=== PATIENT | male | born 1965 | race American Indian/Alaskan Native ===

== ENCOUNTER 2017-11-08 12:08 | Day surgery (SDC) | payer MEDICAID ==
[~2017-11-08] VITALS: Ht 177.8 cm; Wt 114.1 kg
[~2017-11-08 12:08] MED LIST: FISH OIL PO; FURO-150 PO; MULT-1085 PO; SPIR100T3 PO; VITAMIN B PO; VITAMIN D PO; VITAMIN E PO; folic acid PO
[2017-11-08 12:20] VITALS: BP 140/77
[2017-11-08] MEDS ORDERED: MIDAZolam 5mg/ml 2ml vial ONE (12:25)
[2017-11-08] MEDS ORDERED: fentaNYL/PF 50MCG/1 ML 2ML syringe ONE (12:25)
[2017-11-08] MEDS ORDERED: LIDOcaine Viscous 15ml cup ONE (12:25)
[2017-11-08 13:55] VITALS: BP 124/78
[2017-11-08 14:05] VITALS: BP 111/71
[2017-11-08 14:15] VITALS: BP 103/64
[2017-11-08 14:25] VITALS: BP 110/63
== END 2017-11-08 14:35 | disposition home or self-care (01) ==
LOC: GI LAB 12:08
PROVIDERS: ATTEND Internal Medicine Gastroenterology
DX: I85.00 Esophageal varices without bleeding (principal); K76.6 Portal hypertension; K31.89 Other diseases of stomach and duodenum; Z79.899 Other long term (current) drug therapy; F10.10 Alcohol abuse, uncomplicated; E66.9 Obesity, unspecified; M10.9 Gout, unspecified; E78.4 Other hyperlipidemia; E11.9 Type 2 diabetes mellitus without complications
CPT/HCPCS: 43235; 99152; J2250; J3010; J7030; A4620; G0500

== ENCOUNTER 2019-03-02 12:44 | Inpatient (IN) | payer MEDICAID ==
[2019-03-02] VITALS (7 sets, daily range): BP systolic 113–149; BP diastolic 42–80
[~2019-03-02] VITALS: Ht 177.8 cm; Wt 105.9 kg
[~2019-03-02 12:44] MED LIST changes: +AFRIN; +CETI10CA PO; +CHOL10008 PO; -FISH OIL PO; +FOLI1TAB16 PO; +OMEG1CAP2 PO; +POLY17PO10 PO; +PSEU-259 PO; -SPIR100T3 PO; +SPIR100T5 PO; +TEMA15CA PO; +THIA100T70 PO; +VITA1TAB20 PO; +VITA400C65 PO; -VITAMIN B PO; -VITAMIN D PO; -VITAMIN E PO; -folic acid PO
[2019-03-02 13:36] LABS: BASOPHILS % (AUTO) 0.3 % (0-1); EOSINOPHILS % (AUTO) 0.3 % (0-6); HEMATOCRIT 35.3 % (42.0-52.0); HEMOGLOBIN 12.5 g/dl (14.0-17.9); LYMPHOCYTES # (AUTO) 0.4 X10'3 (1.1-4.8); LYMPHOCYTES % (AUTO) 3.3 % (21-51); MEAN CORPUSCULAR HEMOGLOBIN 37.9 PG (27.0-31.0); MEAN CORPUSCULAR HGB CONC 35.3 g/dL (33.0-36.5); MEAN CORPUSCULAR VOLUME 107.5 FL (78-98); MEAN PLATELET VOLUME 8.5 FL (7.4-10.4); MONOCYTES # (AUTO) 0.7 X10'3 (0-0.9); MONOCYTES % (AUTO) 5.6 % (2-12); NEUTROPHILS # (AUTO) 10.9 X10'3 (1.8-7.7); NEUTROPHILS % (AUTO) 90.5 % (42-75); PLATELET COUNT 60 X10'3 (140-440); RED BLOOD COUNT 3.28 X10'6 (4.70-6.10); RED CELL DISTRIBUTION WIDTH 14.8 % (11.5-14.5); WHITE BLOOD COUNT 12.1 X10'3 (4.5-11.0)
[2019-03-02 13:56] LABS: ALANINE AMINOTRANSFERASE 67 U/L (12-78); ALBUMIN 1.7 G/DL (3.4-5.0); ALKALINE PHOSPHATASE 143 IU/L (46-116); ANION GAP 2 (8-16); BILIRUBIN,TOTAL 20.5 MG/DL (0.1-1.0); BLOOD UREA NITROGEN 19 MG/DL (7-18); BUN/CREATININE RATIO 20.9 (5.4-32.0); CHLORIDE 80 MMOL/L (99-107); CREATININE 0.91 MG/DL (0.60-1.10); POTASSIUM 5.6 MMOL/L (3.5-5.1); TOTAL CARBON DIOXIDE 26.2 MMOL/L (24-32); eGFR 87 ML/MIN
[2019-03-02 13:59] LABS: PLATELET ESTIMATE DECREASED; TOTAL CELLS COUNTED 100
[2019-03-02 14:00] LABS: ROULEAUX 1+; TOXIC GRANULATION 2+; TOXIC VACUOLATION 1+
[2019-03-02 14:14] LABS: ALBUMIN/GLOBULIN RATIO 0.3 (1.1-1.5); ASPARTATE AMINO TRANSFERASE 129 U/L (10-37); GLUCOSE 126 MG/DL (70-104); TOTAL PROTEIN 7.4 G/DL (6.4-8.2)
[2019-03-02 14:17] LABS: SODIUM 108 MMOL/L (135-145)
[2019-03-02] MEDS ORDERED: magnesium hydroxide 30ml (MOM) UD suspension PO PRN (15:50)
[2019-03-02] MEDS ORDERED: potassium CL 10mEq/100ml bag 100 ML IV PRN ×2 (15:50)
[2019-03-02] MEDS ORDERED: morphine 2 MG/ML inj. syringe IV PRN (15:50)
[2019-03-02] MEDS ORDERED: ondansetron/PF 4mg/2ml inj IV PRN (15:50)
[2019-03-02] MEDS ORDERED: acetaminophen 325mg tablet PO PRN (15:50)
[2019-03-02] MEDS ORDERED: morphine 4 MG/ML inj SYRINge IV PRN (15:50)
[2019-03-02] MEDS ORDERED: potassium Cl 20 mEq SR tablet PO PRN ×2 (15:50)
[2019-03-02 16:05] LABS: CLARITY,URINE SLIGHTLY CLOUDY (Clear); COLOR,URINE AMBER (Yellow)
[2019-03-02 16:06] LABS: UA COLLECTION TYPE CLN CATCH MIDSTREAM
[2019-03-02 16:12] LABS: BACTERIA,URINE FEW /HPF (Neg); COARSE GRANULAR CAST 0-3 /LPF (NEGATIVE); HYALINE CASTS 0-3 /LPF (NEGATIVE); MUCUS STRANDS FEW /LPF (Neg); RBC,URINE NONE SEEN /HPF (0-2); SQUAMOUS EPITHELIAL CELL,UR FEW /LPF (FEW); WBC,URINE 0-4 /HPF (0-4)
[2019-03-02 16:30] LABS: SODIUM,URINE RANDOM < 15 MEQ/L
[2019-03-02 16:50] LABS: OSMOLALITY UA 552 MOSM/K (50-1400)
[2019-03-02] MEDS ORDERED: sodium chloride 3% IV.soln 100 ML IV ONE (17:05)
[2019-03-02 17:10] LABS: OSMOLALITY 245 MOSM/K (280-300)
--- NOTE | 2019-03-02 17:30 | NUR ---
Patient transferred to 2013 from ER. Patient alert and oriented. Placed on monitor; VSS. Call light in reach and oriented to room with instructions to call for assistance. Bed alarm set. Orders reviewed
[2019-03-02 18:18] LABS: ALBUMIN 1.9 G/DL (3.4-5.0); ANION GAP 2 (8-16); BLOOD UREA NITROGEN 20 MG/DL (7-18); CALCIUM 8.6 MG/DL (8.5-10.1); CHLORIDE 80 MMOL/L (99-107)
[2019-03-02 18:35] LABS: BUN/CREATININE RATIO 22.7 (5.4-32.0); CREATININE 0.88 MG/DL (0.60-1.10); GLUCOSE 93 MG/DL (70-104); POTASSIUM 5.4 MMOL/L (3.5-5.1); eGFR 90 ML/MIN
[2019-03-02 18:46] LABS: SODIUM 107 MMOL/L (135-145)
[2019-03-03] VITALS (24 sets, daily range): BP systolic 104–140; BP diastolic 50–90
--- NOTE | 2019-03-03 01:16 | NUR ---
Dr. Rod said that after the pt's 100ml 3% saline bolus that was completed around 1814 last night (03/02/19) that he wants Q1H Na+ levels checked until 3am, when AM labs are drawn, then we can go to Q6H BMP's. He also said that he does not want any IV fluids running, nor any additional hypertonic saline boluses overnight. Pt is currently on a fluid restriction of 1500mL/day and has consumed approximately 1/2 of that in a 6hr window. Urine output is slightly low, only 200mL of very dark concentrated strong smelling urine out for the last 8 hrs. The patient's Na+ has been 110 since the completion of the hypertonic bolus last night, until the last check at midnight, which came dropped slightly to 109. Called Mahamed Julio to inform, no new orders given at this time due to Dr. Rod's verbalized orders. Will continue to monitor.
[2019-03-03 06:11] LABS: BASOPHILS % (AUTO) 0.3 % (0-1); EOSINOPHILS # (AUTO) 0.1 X10'3 (0-0.9); EOSINOPHILS % (AUTO) 0.7 % (0-6); HEMATOCRIT 32.3 % (42.0-52.0); HEMOGLOBIN 11.6 g/dl (14.0-17.9); LYMPHOCYTES # (AUTO) 0.6 X10'3 (1.1-4.8); LYMPHOCYTES % (AUTO) 4.8 % (21-51); MEAN CORPUSCULAR HEMOGLOBIN 38.6 PG (27.0-31.0); MEAN CORPUSCULAR HGB CONC 35.8 g/dL (33.0-36.5); MEAN CORPUSCULAR VOLUME 107.8 FL (78-98); MEAN PLATELET VOLUME 9.4 FL (7.4-10.4); NEUTROPHILS % (AUTO) 86.2 % (42-75); PLATELET COUNT 60 X10'3 (140-440); RED CELL DISTRIBUTION WIDTH 14.8 % (11.5-14.5); WHITE BLOOD COUNT 12.8 X10'3 (4.5-11.0)
[2019-03-03 06:13] LABS: ALANINE AMINOTRANSFERASE 63 U/L (12-78); ALBUMIN 1.7 G/DL (3.4-5.0); ALKALINE PHOSPHATASE 120 IU/L (46-116); ANION GAP 2 (8-16); BILIRUBIN,TOTAL 20.2 MG/DL (0.1-1.0); BLOOD UREA NITROGEN 21 MG/DL (7-18); BUN/CREATININE RATIO 26.9 (5.4-32.0); CALCIUM 7.8 MG/DL (8.5-10.1); CHLORIDE 81 MMOL/L (99-107); CREATININE 0.78 MG/DL (0.60-1.10); MAGNESIUM 1.9 MG/DL (1.5-2.4); TOTAL CARBON DIOXIDE 26.7 MMOL/L (24-32); eGFR > 90 ML/MIN
[2019-03-03 06:53] LABS: ALBUMIN/GLOBULIN RATIO 0.3 (1.1-1.5); ASPARTATE AMINO TRANSFERASE 133 U/L (10-37); GLUCOSE 77 MG/DL (70-104); PHOSPHORUS 3.5 MG/DL (2.3-4.5); TOTAL PROTEIN 6.8 G/DL (6.4-8.2)
[2019-03-03 06:56] LABS: POTASSIUM 5.6 MMOL/L (3.5-5.1)
[2019-03-03 06:57] LABS: SODIUM 110 MMOL/L (135-145)
[2019-03-03] MEDS ORDERED: enoxaparin 40mg/0.4ml syringe SUBCUT SCH (08:00)
[2019-03-03 11:23] LABS: ALBUMIN 1.6 G/DL (3.4-5.0); ANION GAP 4 (8-16); BLOOD UREA NITROGEN 21 MG/DL (7-18); BUN/CREATININE RATIO 29.2 (5.4-32.0); CALCIUM 7.7 MG/DL (8.5-10.1); CHLORIDE 80 MMOL/L (99-107); CREATININE 0.72 MG/DL (0.60-1.10); GLUCOSE 119 MG/DL (70-104); POTASSIUM 5.6 MMOL/L (3.5-5.1); TOTAL CARBON DIOXIDE 23.8 MMOL/L (24-32); eGFR > 90 ML/MIN
[2019-03-03 11:26] LABS: SODIUM 108 MMOL/L (135-145)
[2019-03-03 11:27] LABS: CLARITY,URINE CLEAR (Clear); COLOR,URINE BROWN (Yellow); PH,URINE 6.5 (4.8-8.0)
[2019-03-03 11:32] LABS: UA COLLECTION TYPE URINAL
[2019-03-03 11:34] LABS: BACTERIA,URINE NONE SEEN /HPF (Neg); MUCUS STRANDS FEW /LPF (Neg); RBC,URINE NONE SEEN /HPF (0-2); SQUAMOUS EPITHELIAL CELL,UR FEW /LPF (FEW); WBC,URINE 0-4 /HPF (0-4)
[2019-03-03 11:42] LABS: SODIUM,URINE RANDOM < 15 MEQ/L
[2019-03-03 11:54] LABS: OSMOLALITY UA 683 MOSM/K (50-1400)
[2019-03-03] MEDS ORDERED: albumin (human) 25% 100 ML IV solution IV ONE ×2 (12:10→20:00)
[2019-03-03 17:37] LABS: ALBUMIN 2.3 G/DL (3.4-5.0); ANION GAP 6 (8-16); BLOOD UREA NITROGEN 20 MG/DL (7-18); BUN/CREATININE RATIO 30.8 (5.4-32.0); CALCIUM 8.3 MG/DL (8.5-10.1); CHLORIDE 79 MMOL/L (99-107); CREATININE 0.65 MG/DL (0.60-1.10); TOTAL CARBON DIOXIDE 26.3 MMOL/L (24-32); eGFR > 90 ML/MIN
[2019-03-03 17:38] LABS: GLUCOSE 108 MG/DL (70-104); POTASSIUM 5.3 MMOL/L (3.5-5.1)
[2019-03-03 17:40] LABS: SODIUM 111 MMOL/L (135-145)
--- NOTE | 2019-03-03 17:49 | NUR ---
Called Dr Rod to report sodium of 111. Orders to call POCKET GRINDER OPERATOR at night if sodium goes up more then 3mEq every 6 hours
[2019-03-04] VITALS (24 sets, daily range): BP systolic 99–124; BP diastolic 47–78
[2019-03-04 00:05] LABS: GLUCOSE 103 MG/DL (70-104)
[2019-03-04 00:34] LABS: SODIUM 113 MMOL/L (135-145)
[2019-03-04 00:35] LABS: ALBUMIN 2.5 G/DL (3.4-5.0); ANION GAP 6 (8-16); BLOOD UREA NITROGEN 19 MG/DL (7-18); BUN/CREATININE RATIO 33.3 (5.4-32.0); CALCIUM 8.1 MG/DL (8.5-10.1); CHLORIDE 83 MMOL/L (99-107); CREATININE 0.57 MG/DL (0.60-1.10); TOTAL CARBON DIOXIDE 24.5 MMOL/L (24-32); eGFR > 90 ML/MIN
[2019-03-04 05:48] LABS: BASOPHILS % (AUTO) 0.4 % (0-1); EOSINOPHILS # (AUTO) 0.1 X10'3 (0-0.9); EOSINOPHILS % (AUTO) 0.8 % (0-6); HEMATOCRIT 27.2 % (42.0-52.0); HEMOGLOBIN 9.6 g/dl (14.0-17.9); LYMPHOCYTES # (AUTO) 0.4 X10'3 (1.1-4.8); LYMPHOCYTES % (AUTO) 3.5 % (21-51); MEAN CORPUSCULAR HEMOGLOBIN 37.7 PG (27.0-31.0); MEAN CORPUSCULAR HGB CONC 35.3 g/dL (33.0-36.5); MEAN CORPUSCULAR VOLUME 106.7 FL (78-98); MONOCYTES # (AUTO) 0.7 X10'3 (0-0.9); MONOCYTES % (AUTO) 7.4 % (2-12); NEUTROPHILS # (AUTO) 8.8 X10'3 (1.8-7.7); NEUTROPHILS % (AUTO) 87.9 % (42-75); RED BLOOD COUNT 2.55 X10'6 (4.70-6.10); RED CELL DISTRIBUTION WIDTH 14.5 % (11.5-14.5)
[2019-03-04 05:51] LABS: PLATELET COUNT 38 X10'3 (140-440)
--- NOTE | 2019-03-04 06:31 | NUR ---
RN Note -MD Communication Called Mahamed Julio regarding critical platelet of 38. Received order to type and screen
[2019-03-04 06:33] LABS: GLUCOSE 89 MG/DL (70-104); POTASSIUM 5.2 MMOL/L (3.5-5.1)
[2019-03-04 06:34] LABS: ALANINE AMINOTRANSFERASE 49 U/L (12-78); ALBUMIN 2.5 G/DL (3.4-5.0); ALBUMIN/GLOBULIN RATIO 0.7 (1.1-1.5); ALKALINE PHOSPHATASE 101 IU/L (46-116); ANION GAP 6 (8-16); ASPARTATE AMINO TRANSFERASE 86 U/L (10-37); BILIRUBIN,TOTAL 18.3 MG/DL (0.1-1.0); BLOOD UREA NITROGEN 17 MG/DL (7-18); BUN/CREATININE RATIO 27.9 (5.4-32.0); CHLORIDE 82 MMOL/L (99-107); CREATININE 0.61 MG/DL (0.60-1.10); MAGNESIUM 1.8 MG/DL (1.5-2.4); PHOSPHORUS 3.3 MG/DL (2.3-4.5); TOTAL CARBON DIOXIDE 24.3 MMOL/L (24-32); TOTAL PROTEIN 6.3 G/DL (6.4-8.2); eGFR > 90 ML/MIN
[2019-03-04 06:35] LABS: SODIUM 112 MMOL/L (135-145)
--- NOTE | 2019-03-04 06:45 | NUR ---
Patient in room CICU 2013. I have received report from MARIEL Connell and had the opportunity to ask questions and assume patient care.
[2019-03-04 09:58] LABS: ALBUMIN 2.5 G/DL (3.4-5.0); ANION GAP 4 (8-16); BLOOD UREA NITROGEN 17 MG/DL (7-18); CHLORIDE 82 MMOL/L (99-107); CREATININE 0.63 MG/DL (0.60-1.10); TOTAL CARBON DIOXIDE 25.4 MMOL/L (24-32); eGFR > 90 ML/MIN
[2019-03-04 10:04] LABS: GLUCOSE 108 MG/DL (70-104)
[2019-03-04 10:06] LABS: SODIUM 111 MMOL/L (135-145)
--- NOTE | 2019-03-04 12:48 | NUR ---
Dr. Rod aware of last NA 111, down from previous NA 112
[2019-03-04 15:46] LABS: ALBUMIN 2.4 G/DL (3.4-5.0); ANION GAP 3 (8-16); BLOOD UREA NITROGEN 16 MG/DL (7-18); BUN/CREATININE RATIO 23.5 (5.4-32.0); CALCIUM 8.7 MG/DL (8.5-10.1); CHLORIDE 82 MMOL/L (99-107); CREATININE 0.68 MG/DL (0.60-1.10); TOTAL CARBON DIOXIDE 25.8 MMOL/L (24-32); eGFR > 90 ML/MIN
[2019-03-04 15:47] LABS: GLUCOSE 104 MG/DL (70-104); POTASSIUM 5.2 MMOL/L (3.5-5.1)
[2019-03-04 15:49] LABS: SODIUM 111 MMOL/L (135-145)
[2019-03-04 16:01] LABS: PLATELET COUNT 37 X10'3 (140-440)
[2019-03-04 16:02] LABS: D-DIMER 8.43 MG/L FEU (0-0.50); PARTIAL THROMBOPLASTIN TIME 46 SECONDS (22-32)
[2019-03-04 16:06] LABS: SODIUM,URINE RANDOM < 15 MEQ/L
[2019-03-04 16:21] LABS: % IRON SATURATION 106 % (11-46); IRON 87 UG/DL (53-167); TOTAL IRON BINDING CAPACITY 82 UG/DL (259-388)
[2019-03-04 16:45] LABS: FERRITIN 2732 NG/ML (26-388)
[2019-03-04 16:59] LABS: OSMOLALITY UA 598 MOSM/K (50-1400)
--- NOTE | 2019-03-04 18:08 | NUR ---
Problems reprioritized. Patient report given, questions answered & plan of care reviewed with MARIEL Melo.
--- NOTE | 2019-03-04 18:30 | NUR ---
Patient in room CICU 2013. I have received report from Tamica FLOYD and had the opportunity to ask questions and assume patient care.
[2019-03-04 21:48] LABS: ALBUMIN 2.3 G/DL (3.4-5.0); BLOOD UREA NITROGEN 15 MG/DL (7-18); BUN/CREATININE RATIO 20.8 (5.4-32.0); CALCIUM 8.3 MG/DL (8.5-10.1); CHLORIDE 82 MMOL/L (99-107); CREATININE 0.72 MG/DL (0.60-1.10); TOTAL CARBON DIOXIDE 25.1 MMOL/L (24-32); eGFR > 90 ML/MIN
[2019-03-04 21:59] LABS: ANION GAP 6 (8-16); GLUCOSE 93 MG/DL (70-104); POTASSIUM 4.7 MMOL/L (3.5-5.1)
[2019-03-04 22:05] LABS: SODIUM 113 MMOL/L (135-145)
[2019-03-05] VITALS (23 sets, daily range): BP systolic 94–129; BP diastolic 48–79
[2019-03-05 05:37] LABS: HEMATOCRIT 27.2 % (42.0-52.0); HEMOGLOBIN 9.4 g/dl (14.0-17.9); MEAN CORPUSCULAR HEMOGLOBIN 37.9 PG (27.0-31.0); MEAN CORPUSCULAR HGB CONC 34.4 g/dL (33.0-36.5); MEAN CORPUSCULAR VOLUME 110.1 FL (78-98); MEAN PLATELET VOLUME 7.8 FL (7.4-10.4); RED BLOOD COUNT 2.47 X10'6 (4.70-6.10); RED CELL DISTRIBUTION WIDTH 14.3 % (11.5-14.5); WHITE BLOOD COUNT 10.4 X10'3 (4.5-11.0)
[2019-03-05 05:39] LABS: EOSINOPHILS % (AUTO) 0.8 % (0-6); LYMPHOCYTES % (AUTO) 4.7 % (21-51); NEUTROPHILS % (AUTO) 86.1 % (42-75)
[2019-03-05 05:40] LABS: BASOPHILS % (AUTO) 0.4 % (0-1); EOSINOPHILS # (AUTO) 0.1 X10'3 (0-0.9); LYMPHOCYTES # (AUTO) 0.5 X10'3 (1.1-4.8); MONOCYTES # (AUTO) 0.9 X10'3 (0-0.9); NEUTROPHILS # (AUTO) 9.4 X10'3 (1.8-7.7)
[2019-03-05 05:42] LABS: PLATELET COUNT 43 X10'3 (140-440)
[2019-03-05 05:51] LABS: ALANINE AMINOTRANSFERASE 57 U/L (12-78); ALBUMIN 2.3 G/DL (3.4-5.0); ALKALINE PHOSPHATASE 106 IU/L (46-116); ANION GAP 7 (8-16); BILIRUBIN,TOTAL 17.2 MG/DL (0.1-1.0); BLOOD UREA NITROGEN 14 MG/DL (7-18); BUN/CREATININE RATIO 23.3 (5.4-32.0); CALCIUM 7.9 MG/DL (8.5-10.1); CHLORIDE 83 MMOL/L (99-107); MAGNESIUM 1.6 MG/DL (1.5-2.4); eGFR > 90 ML/MIN
--- NOTE | 2019-03-05 06:06 | NUR ---
critical results called to Mahamed Julio. No new orders at this time.
--- NOTE | 2019-03-05 06:13 | NUR ---
Patient in room CICU 2013. I have received report from MARIEL Melo and had the opportunity to ask questions and assume patient care.
[2019-03-05 06:26] LABS: SODIUM 113 MMOL/L (135-145)
[2019-03-05 06:52] LABS: ALBUMIN/GLOBULIN RATIO 0.6 (1.1-1.5); ASPARTATE AMINO TRANSFERASE 105 U/L (10-37); GLUCOSE 86 MG/DL (70-104); PHOSPHORUS 3.6 MG/DL (2.3-4.5); POTASSIUM 4.9 MMOL/L (3.5-5.1); TOTAL PROTEIN 6.2 G/DL (6.4-8.2)
[2019-03-05] MEDS ORDERED: normal saline 1000ml 1,000 ML IVB ONE (10:32)
[2019-03-05 10:34] LABS: ALANINE AMINOTRANSFERASE 62 U/L (12-78); ALBUMIN 2.3 G/DL (3.4-5.0); ALKALINE PHOSPHATASE 106 IU/L (46-116); ANION GAP 6 (8-16); BILIRUBIN,TOTAL 18.8 MG/DL (0.1-1.0); BLOOD UREA NITROGEN 14 MG/DL (7-18); BUN/CREATININE RATIO 19.4 (5.4-32.0); CALCIUM 8.3 MG/DL (8.5-10.1); CHLORIDE 82 MMOL/L (99-107); CREATININE 0.72 MG/DL (0.60-1.10); TOTAL CARBON DIOXIDE 25.3 MMOL/L (24-32); eGFR > 90 ML/MIN
[2019-03-05 10:36] LABS: ASPARTATE AMINO TRANSFERASE 115 U/L (10-37); GLUCOSE 99 MG/DL (70-104); POTASSIUM 4.8 MMOL/L (3.5-5.1); TOTAL PROTEIN 6.6 G/DL (6.4-8.2)
[2019-03-05 10:37] LABS: ALBUMIN/GLOBULIN RATIO 0.5 (1.1-1.5)
[2019-03-05 10:38] LABS: SODIUM 113 MMOL/L (135-145)
--- NOTE | 2019-03-05 14:01 | NUR ---
Carlson catheter and chest tubes removed without complications. Addendum: 03/05/19 at 1401 by Tamica Foote RN WRONG PT*
[2019-03-05 14:16] LABS: OSMOLALITY UA 444 MOSM/K (50-1400)
[2019-03-05 14:20] LABS: SODIUM,URINE RANDOM < 15 MEQ/L
[2019-03-05 16:42] LABS: ALBUMIN 2.3 G/DL (3.4-5.0); ANION GAP 6 (8-16); BLOOD UREA NITROGEN 15 MG/DL (7-18); BUN/CREATININE RATIO 22.4 (5.4-32.0); CALCIUM 7.9 MG/DL (8.5-10.1); CHLORIDE 84 MMOL/L (99-107); CREATININE 0.67 MG/DL (0.60-1.10); TOTAL CARBON DIOXIDE 22.8 MMOL/L (24-32); eGFR > 90 ML/MIN
[2019-03-05 16:45] LABS: GLUCOSE 109 MG/DL (70-104); POTASSIUM 4.7 MMOL/L (3.5-5.1)
[2019-03-05 16:47] LABS: SODIUM 113 MMOL/L (135-145)
[2019-03-05] MEDS ORDERED: normal saline 1000ml 1,000 ML IV ONE (16:55)
--- NOTE | 2019-03-05 18:17 | NUR ---
Problems reprioritized. Patient report given, questions answered & plan of care reviewed with MARIEL Flores.
--- NOTE | 2019-03-05 18:30 | NUR ---
Patient in room CICU 2013. I have received report from Tamica FLOYD and had the opportunity to ask questions and assume patient care. Pt sitting in bed eating dinner, family at bedside, questions answered.
[2019-03-05 19:09] LABS: ALBUMIN 2.3 G/DL (3.4-5.0); ANION GAP 4 (8-16); BLOOD UREA NITROGEN 14 MG/DL (7-18); BUN/CREATININE RATIO 19.4 (5.4-32.0); CALCIUM 7.2 MG/DL (8.5-10.1); CHLORIDE 84 MMOL/L (99-107); CREATININE 0.72 MG/DL (0.60-1.10); TOTAL CARBON DIOXIDE 26.9 MMOL/L (24-32); eGFR > 90 ML/MIN
[2019-03-05 19:19] LABS: SODIUM 115 MMOL/L (135-145)
[2019-03-05 19:27] LABS: GLUCOSE 118 MG/DL (70-104); POTASSIUM 4.8 MMOL/L (3.5-5.1)
--- NOTE | 2019-03-05 19:30 | NUR ---
Current labs reviewed. Maryjo updated. No new orders at this time.
[2019-03-05] MEDS: vitamin D (cholecalciferol) 1,000 unit tablet PO SCH (21:01)
[2019-03-05] MEDS: temazepam 15mg capsule PO SCH (21:01)
[2019-03-05 21:14] LABS: OSMOLALITY UA 492 MOSM/K (50-1400)
[2019-03-05 21:15] LABS: SODIUM,URINE RANDOM < 15 MEQ/L
[2019-03-06] VITALS (26 sets, daily range): BP systolic 90–124; BP diastolic 50–80
[2019-03-06 04:40] LABS: BASOPHILS % (AUTO) 0.3 % (0-1); EOSINOPHILS # (AUTO) 0.1 X10'3 (0-0.9); EOSINOPHILS % (AUTO) 0.7 % (0-6); HEMATOCRIT 26.7 % (42.0-52.0); HEMOGLOBIN 9.5 g/dl (14.0-17.9); LYMPHOCYTES # (AUTO) 0.5 X10'3 (1.1-4.8); LYMPHOCYTES % (AUTO) 4.3 % (21-51); MEAN CORPUSCULAR HEMOGLOBIN 38.6 PG (27.0-31.0); MEAN CORPUSCULAR HGB CONC 35.7 g/dL (33.0-36.5); MEAN CORPUSCULAR VOLUME 108.1 FL (78-98); MEAN PLATELET VOLUME 8.5 FL (7.4-10.4); MONOCYTES # (AUTO) 0.8 X10'3 (0-0.9); MONOCYTES % (AUTO) 7.2 % (2-12); NEUTROPHILS # (AUTO) 10.1 X10'3 (1.8-7.7); NEUTROPHILS % (AUTO) 87.5 % (42-75); RED BLOOD COUNT 2.47 X10'6 (4.70-6.10); RED CELL DISTRIBUTION WIDTH 14.8 % (11.5-14.5); WHITE BLOOD COUNT 11.6 X10'3 (4.5-11.0)
[2019-03-06 04:50] LABS: PLATELET COUNT 45 X10'3 (140-440)
[2019-03-06 05:02] LABS: ALANINE AMINOTRANSFERASE 67 U/L (12-78); ALBUMIN 2.2 G/DL (3.4-5.0); ALKALINE PHOSPHATASE 111 IU/L (46-116); ANION GAP 5 (8-16); BILIRUBIN,TOTAL 16.4 MG/DL (0.1-1.0); BLOOD UREA NITROGEN 12 MG/DL (7-18); CHLORIDE 86 MMOL/L (99-107); MAGNESIUM 1.7 MG/DL (1.5-2.4); TOTAL CARBON DIOXIDE 24.9 MMOL/L (24-32); eGFR > 90 ML/MIN
[2019-03-06 05:15] LABS: ASPARTATE AMINO TRANSFERASE 113 U/L (10-37)
[2019-03-06 05:18] LABS: ALBUMIN/GLOBULIN RATIO 0.5 (1.1-1.5); GLUCOSE 86 MG/DL (70-104); PHOSPHORUS 3.3 MG/DL (2.3-4.5); POTASSIUM 4.5 MMOL/L (3.5-5.1); TOTAL PROTEIN 6.3 G/DL (6.4-8.2)
[2019-03-06 05:19] LABS: SODIUM 116 MMOL/L (135-145)
--- NOTE | 2019-03-06 06:15 | NUR ---
Patient in room CICU 2013. I have received report from MARIEL Flores and had the opportunity to ask questions and assume patient care.
--- NOTE | 2019-03-06 06:38 | NUR ---
Problems reprioritized. Patient report given, questions answered & plan of care reviewed with Abdon FLOYD.
[2019-03-06 08:23] LABS: ALBUMIN 2.2 G/DL (3.4-5.0); ANION GAP 5 (8-16); BLOOD UREA NITROGEN 12 MG/DL (7-18); CALCIUM 8.3 MG/DL (8.5-10.1); CHLORIDE 88 MMOL/L (99-107); TOTAL CARBON DIOXIDE 23.7 MMOL/L (24-32)
[2019-03-06 08:24] LABS: BUN/CREATININE RATIO 17.4 (5.4-32.0); CREATININE 0.69 MG/DL (0.60-1.10); GLUCOSE 88 MG/DL (70-104); POTASSIUM 4.7 MMOL/L (3.5-5.1); eGFR > 90 ML/MIN
[2019-03-06] MEDS: folic acid 1mg tablet PO SCH (08:25)
[2019-03-06] MEDS: vitamin E 400 unit capsule PO SCH (08:25)
[2019-03-06] MEDS: vitamin D (cholecalciferol) 1,000 unit tablet PO SCH ×2 (08:25→20:51)
[2019-03-06] MEDS: thiamine 100mg tablet PO SCH (08:25)
[2019-03-06] MEDS: vitamin B comp w/Vit. C tab 1 TAB TABLET PO SCH (08:25)
[2019-03-06] MEDS: multivitamins, therapeutics tablet PO SCH (08:25)
[2019-03-06] MEDS: OMEGA-3/DHA/EPA/FISH OIL 1 EACH CAPSULE.DR PO SCH (08:27)
[2019-03-06 08:30] LABS: SODIUM 117 MMOL/L (135-145)
--- NOTE | 2019-03-06 10:45 | NUR ---
During rounds with MD Rod he was informed of increasing size of Abdomen and he was expressed the daughters concerns about his plan of care and that she wants the pt transferred to his "liver doctor". MD has already attempted to contact him and his MD is aware that the pt is here at this time he is not requesting to have the pt transferred due to the fact that the pt only stopped drinking three weeks ago and has not made it to an apt with him in 1.5 yrs. daughter educated that we need to get the pt through this acute phase and then they can make a residential plan for the pts care on an out pt basis. We are going to do a paracentesis today and we are monitoring NA closely
[2019-03-06] MEDS ORDERED: albumin (human) 25% 100 ML IV solution IV ONE (12:25)
--- NOTE | 2019-03-06 13:30 | NUR ---
IR called they wont do the Para until the Platelets are within a safe range and INR is lower MD Rod notified ordered daily Vit K and 1 pack of platelets will redraw labs 2 hours after platelet infusion
[2019-03-06] MEDS ORDERED: phytonadione inj. 5 MG in normal saline 100ml IV soln 99.5 ML IV ONE (14:00)
--- NOTE | 2019-03-06 14:06 | NUR ---
Nutrition consult received re: poor PO, hepatic failure, chronic hyponatremia. Pt had SIADH or volume depletion per MD note 03/05; conservative medical treatment needed for the hyponatremia including MD ordered fluid restriction and cannot be altered with any additional nutrition intervention at this time. Appetite is improved since admission, has been eating 75-100% for the past two meals, eating 25-49% prior. Currently, pt is meeting nutrition needs. Fluid restriction per MD is 1500 ml for nursing, 0 ml dietary. Dietary sending dry tray. Pt admitted with heavy EtOH history, liver cirrhosis, ascites with soft abdomen, hyponatremia as mentioned above. Will continue to follow per protocol and monitor PO intake. Recommend: 1. continue regular diet 2. fluid restriction per MD 3. monitor PO intake and need for ONS 4. wt per rx Addendum: 03/06/19 at [address] Amended: Links added.
[2019-03-06 18:05] LABS: ANION GAP 6 (8-16); BLOOD UREA NITROGEN 12 MG/DL (7-18); BUN/CREATININE RATIO 16.2 (5.4-32.0); CHLORIDE 86 MMOL/L (99-107); CREATININE 0.74 MG/DL (0.60-1.10); TOTAL CARBON DIOXIDE 25.6 MMOL/L (24-32)
[2019-03-06 18:06] LABS: ALANINE AMINOTRANSFERASE 70 U/L (12-78); ALBUMIN 2.3 G/DL (3.4-5.0); ALKALINE PHOSPHATASE 113 IU/L (46-116); BILIRUBIN,TOTAL 15.5 MG/DL (0.1-1.0); CALCIUM 7.9 MG/DL (8.5-10.1); eGFR > 90 ML/MIN
[2019-03-06 18:15] LABS: ALBUMIN/GLOBULIN RATIO 0.5 (1.1-1.5); ASPARTATE AMINO TRANSFERASE 111 U/L (10-37); GLUCOSE 101 MG/DL (70-104); POTASSIUM 4.8 MMOL/L (3.5-5.1); TOTAL PROTEIN 6.6 G/DL (6.4-8.2)
[2019-03-06 18:17] LABS: SODIUM 118 MMOL/L (135-145)
--- NOTE | 2019-03-06 18:20 | NUR ---
Patient in room CICU 2013. I have received report and had the opportunity to ask questions and assume patient care.
[2019-03-06 18:43] LABS: BASOPHILS # (AUTO) 0.1 X10'3 (0-0.2); BASOPHILS % (AUTO) 0.6 % (0-1); EOSINOPHILS # (AUTO) 0.1 X10'3 (0-0.9); EOSINOPHILS % (AUTO) 0.8 % (0-6); HEMATOCRIT 27.2 % (42.0-52.0); HEMOGLOBIN 9.7 g/dl (14.0-17.9); LYMPHOCYTES # (AUTO) 0.5 X10'3 (1.1-4.8); LYMPHOCYTES % (AUTO) 4.5 % (21-51); MEAN CORPUSCULAR HEMOGLOBIN 38.6 PG (27.0-31.0); MEAN CORPUSCULAR HGB CONC 35.7 g/dL (33.0-36.5); MEAN CORPUSCULAR VOLUME 108.3 FL (78-98); MEAN PLATELET VOLUME 8.2 FL (7.4-10.4); MONOCYTES # (AUTO) 0.7 X10'3 (0-0.9); MONOCYTES % (AUTO) 6.7 % (2-12); NEUTROPHILS # (AUTO) 9.2 X10'3 (1.8-7.7); NEUTROPHILS % (AUTO) 87.4 % (42-75); PLATELET COUNT 67 X10'3 (140-440); RED BLOOD COUNT 2.52 X10'6 (4.70-6.10); RED CELL DISTRIBUTION WIDTH 14.6 % (11.5-14.5); WHITE BLOOD COUNT 10.5 X10'3 (4.5-11.0)
[2019-03-06] MEDS: temazepam 15mg capsule PO SCH (20:51)
[2019-03-06 21:54] LABS: ALBUMIN 2.2 G/DL (3.4-5.0); ANION GAP 4 (8-16); BLOOD UREA NITROGEN 12 MG/DL (7-18); BUN/CREATININE RATIO 17.1 (5.4-32.0); CALCIUM 7.7 MG/DL (8.5-10.1); CHLORIDE 88 MMOL/L (99-107); TOTAL CARBON DIOXIDE 25.6 MMOL/L (24-32); eGFR > 90 ML/MIN
[2019-03-06 22:04] LABS: GLUCOSE 100 MG/DL (70-104); POTASSIUM 4.8 MMOL/L (3.5-5.1)
[2019-03-06 22:06] LABS: SODIUM 118 MMOL/L (135-145)
[2019-03-07] VITALS (20 sets, daily range): BP systolic 102–128; BP diastolic 53–75
--- NOTE | 2019-03-07 02:41 | NUR ---
pt transferred to room 3014 on pcu. Problems reprioritized. Patient report given, questions answered & plan of care reviewed.
--- NOTE | 2019-03-07 02:46 | NUR ---
Patient in room CICU 2012. I have received report from Nasrin FLOYD ICU and had the opportunity to ask questions and assume patient care.
--- NOTE | 2019-03-07 03:00 | NUR ---
pt arrived to unit with all belongings, VS stable, oriented pt to room, call light within reach.
--- NOTE | 2019-03-07 04:30 | NUR ---
I have reviewed and agree with Lg FLOYDpathology transcriptionist.
[2019-03-07 05:32] LABS: BASOPHILS % (AUTO) 0.3 % (0-1); EOSINOPHILS # (AUTO) 0.1 X10'3 (0-0.9); HEMOGLOBIN 9.4 g/dl (14.0-17.9); LYMPHOCYTES # (AUTO) 0.4 X10'3 (1.1-4.8); LYMPHOCYTES % (AUTO) 3.5 % (21-51); MEAN CORPUSCULAR HEMOGLOBIN 38.6 PG (27.0-31.0); MEAN CORPUSCULAR HGB CONC 35.9 g/dL (33.0-36.5); MEAN CORPUSCULAR VOLUME 107.4 FL (78-98); MONOCYTES # (AUTO) 0.7 X10'3 (0-0.9); MONOCYTES % (AUTO) 7.1 % (2-12); NEUTROPHILS # (AUTO) 9.3 X10'3 (1.8-7.7); NEUTROPHILS % (AUTO) 88.1 % (42-75); PLATELET COUNT 62 X10'3 (140-440); RED BLOOD COUNT 2.42 X10'6 (4.70-6.10); RED CELL DISTRIBUTION WIDTH 14.5 % (11.5-14.5); WHITE BLOOD COUNT 10.5 X10'3 (4.5-11.0)
[2019-03-07 06:17] LABS: ALANINE AMINOTRANSFERASE 65 U/L (12-78); ALBUMIN 2.1 G/DL (3.4-5.0); ALBUMIN/GLOBULIN RATIO 0.5 (1.1-1.5); ALKALINE PHOSPHATASE 129 IU/L (46-116); ANION GAP 6 (8-16); ASPARTATE AMINO TRANSFERASE 107 U/L (10-37); BILIRUBIN,TOTAL 13.8 MG/DL (0.1-1.0); BLOOD UREA NITROGEN 12 MG/DL (7-18); BUN/CREATININE RATIO 18.2 (5.4-32.0); CALCIUM 8.2 MG/DL (8.5-10.1); CHLORIDE 88 MMOL/L (99-107); CREATININE 0.66 MG/DL (0.60-1.10); GLUCOSE 96 MG/DL (70-104); MAGNESIUM 1.8 MG/DL (1.5-2.4); PHOSPHORUS 3.3 MG/DL (2.3-4.5); POTASSIUM 4.8 MMOL/L (3.5-5.1); TOTAL CARBON DIOXIDE 24.4 MMOL/L (24-32); TOTAL PROTEIN 6.2 G/DL (6.4-8.2); eGFR > 90 ML/MIN
--- NOTE | 2019-03-07 06:32 | NUR ---
Problems reprioritized. Patient report given, questions answered & plan of care reviewed with Jacey FLOYD.
[2019-03-07 06:40] LABS: SODIUM 118 MMOL/L (135-145)
--- NOTE | 2019-03-07 06:40 | NUR ---
Received critical NA of [address] Lora, received no new orders.
--- NOTE | 2019-03-07 07:07 | NUR ---
Patient in room PCU 3014B. I have received report from Reymundo FLOYD and had the opportunity to ask questions and assume patient care.
[2019-03-07] MEDS: vitamin D (cholecalciferol) 1,000 unit tablet PO SCH ×2 (07:54→21:32)
[2019-03-07] MEDS: thiamine 100mg tablet PO SCH (07:54)
[2019-03-07] MEDS: multivitamins, therapeutics tablet PO SCH (07:54)
[2019-03-07] MEDS: folic acid 1mg tablet PO SCH (07:54)
[2019-03-07] MEDS: vitamin E 400 unit capsule PO SCH (09:27)
[2019-03-07] MEDS: vitamin B comp w/Vit. C tab 1 TAB TABLET PO SCH (09:27)
[2019-03-07] MEDS: OMEGA-3/DHA/EPA/FISH OIL 1 EACH CAPSULE.DR PO SCH (09:27)
[2019-03-07] MEDS ORDERED: albumin (human) 25% 100 ML IV solution IV ONE (11:25)
--- NOTE | 2019-03-07 18:12 | NUR ---
Problems reprioritized. Patient report given, questions answered & plan of care reviewed with Cihchi FLOYD.
--- NOTE | 2019-03-07 18:30 | NUR ---
Patient in room PCU 3014. I have received report from Jacey FLOYD and had the opportunity to ask questions and assume patient care.
[2019-03-07] MEDS: temazepam 15mg capsule PO SCH (21:32)
[2019-03-08 03:00] VITALS: BP 112/60
[2019-03-08 03:30] VITALS: BP 112/60
[2019-03-08 06:00] VITALS: BP 99/64
--- NOTE | 2019-03-08 06:09 | NUR ---
Problems reprioritized. Patient report given, questions answered & plan of care reviewed with Maria Isabel FLOYD.
--- NOTE | 2019-03-08 06:30 | NUR ---
Patient in room PCU 3014. I have received report from Chichi FLOYD and had the opportunity to ask questions and assume patient care.
[2019-03-08 06:41] LABS: ALANINE AMINOTRANSFERASE 67 U/L (12-78); ALBUMIN 2.1 G/DL (3.4-5.0); ALKALINE PHOSPHATASE 155 IU/L (46-116); ANION GAP 7 (8-16); ASPARTATE AMINO TRANSFERASE 98 U/L (10-37); BLOOD UREA NITROGEN 12 MG/DL (7-18); BUN/CREATININE RATIO 15.8 (5.4-32.0); CALCIUM 7.3 MG/DL (8.5-10.1); CHLORIDE 91 MMOL/L (99-107); CREATININE 0.76 MG/DL (0.60-1.10); GLUCOSE 104 MG/DL (70-104); MAGNESIUM 1.8 MG/DL (1.5-2.4); POTASSIUM 4.6 MMOL/L (3.5-5.1); SODIUM 122 MMOL/L (135-145); TOTAL CARBON DIOXIDE 24.4 MMOL/L (24-32); eGFR > 90 ML/MIN
[2019-03-08 06:44] LABS: ALBUMIN/GLOBULIN RATIO 0.5 (1.1-1.5); PHOSPHORUS 3.1 MG/DL (2.3-4.5)
[2019-03-08 07:26] LABS: BASOPHILS % (AUTO) 0.4 % (0-1); EOSINOPHILS # (AUTO) 0.1 X10'3 (0-0.9); HEMATOCRIT 27.2 % (42.0-52.0); HEMOGLOBIN 9.5 g/dl (14.0-17.9); LYMPHOCYTES # (AUTO) 0.4 X10'3 (1.1-4.8); LYMPHOCYTES % (AUTO) 4.1 % (21-51); MEAN CORPUSCULAR HEMOGLOBIN 38.1 PG (27.0-31.0); MEAN CORPUSCULAR VOLUME 108.9 FL (78-98); MEAN PLATELET VOLUME 9.6 FL (7.4-10.4); MONOCYTES # (AUTO) 0.8 X10'3 (0-0.9); MONOCYTES % (AUTO) 7.3 % (2-12); NEUTROPHILS # (AUTO) 9.3 X10'3 (1.8-7.7); NEUTROPHILS % (AUTO) 87.2 % (42-75); RED CELL DISTRIBUTION WIDTH 14.6 % (11.5-14.5); WHITE BLOOD COUNT 10.7 X10'3 (4.5-11.0)
[2019-03-08 07:30] VITALS: BP 99/64
[2019-03-08 07:31] LABS: PLATELET COUNT 49 X10'3 (140-440)
--- NOTE | 2019-03-08 08:05 | NUR ---
Called Dr. Rod regarding critical platelet count of 49 this morning. No new orders at this time.
[2019-03-08] MEDS: vitamin B comp w/Vit. C tab 1 TAB TABLET PO SCH (08:10)
[2019-03-08] MEDS: thiamine 100mg tablet PO SCH (08:11)
[2019-03-08] MEDS: vitamin D (cholecalciferol) 1,000 unit tablet PO SCH (08:11)
[2019-03-08] MEDS: folic acid 1mg tablet PO SCH (08:11)
[2019-03-08] MEDS: multivitamins, therapeutics tablet PO SCH (08:11)
[2019-03-08] MEDS: vitamin E 400 unit capsule PO SCH (08:11)
[2019-03-08] MEDS: OMEGA-3/DHA/EPA/FISH OIL 1 EACH CAPSULE.DR PO SCH (08:11)
[2019-03-08 11:00] VITALS: BP 103/43
--- NOTE | 2019-03-08 15:17 | NUR ---
Reviewed discharge instructions with pt and pt's family. Pt is awaiting a call back from PCP at the [facility]. Pt educated on signs and symptoms of hyponatremia and when to return to hospital. IV discontinued with canula intact. Tele monitor discontinued. No new medications prescribed at this time. Reviewed current medication regimen with pt. Pt alert and oriented X 4 and pt taken to lobby via wheelchair. Pt driven home in private vehicle by pt's daughter.
== END 2019-03-08 15:20 | disposition home or self-care (01) | DRG 280 ==
LOC: ER 12:45 → CICU 2S 16:41 → CMPBEDREQ 03-05 19:47 → PCU 3S 03-07 03:00
PROVIDERS: ADMIT Internal Medicine Critical Care Medicine; ATTEND Internal Medicine Critical Care Medicine
PROC: 30233R1 Transfusion of Nonautologous Platelets into Peripheral Vein, Percutaneous Approach (ICD-10-PCS; principal; 2019-03-06)
PROC: 0W9G3ZZ Drainage of Peritoneal Cavity, Percutaneous Approach (ICD-10-PCS; 2019-03-07)
DX: K70.31 Alcoholic cirrhosis of liver with ascites (principal); E43 Unspecified severe protein-calorie malnutrition; D68.9 Coagulation defect, unspecified; E22.2 Syndrome of inappropriate secretion of antidiuretic hormone; D69.59 Other secondary thrombocytopenia; D64.9 Anemia, unspecified; F10.20 Alcohol dependence, uncomplicated; R27.0 Ataxia, unspecified; Z80.6 Family history of leukemia; Z68.33 Body mass index [BMI] 33.0-33.9, adult; Z79.899 Other long term (current) drug therapy
CPT/HCPCS: 36415; 49083; 80048; 80053; 81001; 82728; 83010; 83540; 83550; 83735; 83930; 83935; 84100; 84295; 84300; 84443; 85025; 85379; 85384; 85610; 85730; 86885; 86900; 86901; 87081; 93005; 97116; 97161; 97530; 99285; G0378; J3430; J7131; P9035; P9047

== ENCOUNTER 2019-03-11 20:06 | Inpatient (IN) | payer MEDICAID ==
[~2019-03-11] VITALS: Ht 177.8 cm; Wt 106.5 kg
[~2019-03-11 20:06] MED LIST changes: -AFRIN; -CETI10CA PO; -FURO-150 PO; -POLY17PO10 PO; -PSEU-259 PO
[2019-03-11 20:43] LABS: BASOPHILS # (AUTO) 0.1 X10'3 (0-0.2); BASOPHILS % (AUTO) 0.5 % (0-1); EOSINOPHILS # (AUTO) 0.1 X10'3 (0-0.9); EOSINOPHILS % (AUTO) 0.7 % (0-6); HEMATOCRIT 32.6 % (42.0-52.0); HEMOGLOBIN 11.2 g/dl (14.0-17.9); LYMPHOCYTES # (AUTO) 0.6 X10'3 (1.1-4.8); LYMPHOCYTES % (AUTO) 4.3 % (21-51); MEAN CORPUSCULAR HEMOGLOBIN 37.6 PG (27.0-31.0); MEAN CORPUSCULAR HGB CONC 34.4 g/dL (33.0-36.5); MEAN CORPUSCULAR VOLUME 109.4 FL (78-98); MEAN PLATELET VOLUME 8.2 FL (7.4-10.4); MONOCYTES % (AUTO) 7.4 % (2-12); NEUTROPHILS % (AUTO) 87.1 % (42-75); PLATELET COUNT 76 X10'3 (140-440); RED BLOOD COUNT 2.98 X10'6 (4.70-6.10); RED CELL DISTRIBUTION WIDTH 15.4 % (11.5-14.5); WHITE BLOOD COUNT 13.8 X10'3 (4.5-11.0)
[2019-03-11 20:55] LABS: PARTIAL THROMBOPLASTIN TIME 41 SECONDS (22-32)
[2019-03-11 20:56] LABS: ALANINE AMINOTRANSFERASE 72 U/L (12-78); ALBUMIN 2.2 G/DL (3.4-5.0); ALKALINE PHOSPHATASE 145 IU/L (46-116); BILIRUBIN,TOTAL 14.2 MG/DL (0.1-1.0); BLOOD UREA NITROGEN 24 MG/DL (7-18); BUN/CREATININE RATIO 25.8 (5.4-32.0); CALCIUM 8.9 MG/DL (8.5-10.1); CHLORIDE 85 MMOL/L (99-107); CREATININE 0.93 MG/DL (0.60-1.10); TOTAL CARBON DIOXIDE 24.8 MMOL/L (24-32); eGFR 85 ML/MIN
[2019-03-11 21:13] LABS: ASPARTATE AMINO TRANSFERASE 97 U/L (10-37)
[2019-03-11 21:14] LABS: ALBUMIN/GLOBULIN RATIO 0.4 (1.1-1.5); GLUCOSE 85 MG/DL (70-104); POTASSIUM 5.1 MMOL/L (3.5-5.1); TOTAL PROTEIN 7.2 G/DL (6.4-8.2)
[2019-03-11 21:17] LABS: ANION GAP 6 (8-16)
[2019-03-11 21:18] LABS: SODIUM 116 MMOL/L (135-145)
--- NOTE | 2019-03-11 21:43 | NUR ---
DR DE LA O AWARE OF LABS. NO NEW ORDERS.
[2019-03-11] MEDS ORDERED: mag hydrox/Alum hydrox/simeth 30ml oral suspension PO PRN (22:40)
[2019-03-11] MEDS ORDERED: ondansetron/PF 4mg/2ml inj IV PRN (22:40)
[2019-03-11] MEDS ORDERED: magnesium hydroxide 30ml (MOM) UD suspension PO PRN (22:40)
--- NOTE | 2019-03-11 23:46 | NUR ---
PT UNABLE TO GIVE URINE SAMPLE AFTER MULTIPLE ATTEMPTS. INFORMED PT OF POSSIBLE NEED TO STRAIGHT CATH FOR SAMPLE. PT ADAMENTLY REFUSED.
--- NOTE | 2019-03-11 23:54 | NUR ---
I HAVE RECEIVED REPORT FROM MARIEL OBRIEN IN ED. ALL QUESTIONS AND CONCERNS ADDRESSED AT THIS TIME. PCU ROOM 3016A PREPPED AND READY TO RECEIVE PATIENT
[2019-03-12 00:05] VITALS: BP 109/70
[2019-03-12] MEDS ORDERED: temazepam 15mg capsule PO ONE (02:20)
[2019-03-12 03:00] VITALS: BP 108/56
[2019-03-12 03:01] LABS: ALANINE AMINOTRANSFERASE 63 U/L (12-78); ALKALINE PHOSPHATASE 127 IU/L (46-116); ASPARTATE AMINO TRANSFERASE 87 U/L (10-37); BILIRUBIN,TOTAL 13.6 MG/DL (0.1-1.0); BLOOD UREA NITROGEN 25 MG/DL (7-18); BUN/CREATININE RATIO 31.6 (5.4-32.0); CREATININE 0.79 MG/DL (0.60-1.10); GLUCOSE 96 MG/DL (70-104); TOTAL CARBON DIOXIDE 22.6 MMOL/L (24-32); eGFR > 90 ML/MIN
[2019-03-12 03:07] LABS: BASOPHILS % (AUTO) 0.3 % (0-1); EOSINOPHILS # (AUTO) 0.1 X10'3 (0-0.9); EOSINOPHILS % (AUTO) 0.7 % (0-6); HEMATOCRIT 28.9 % (42.0-52.0); HEMOGLOBIN 10.2 g/dl (14.0-17.9); LYMPHOCYTES # (AUTO) 0.6 X10'3 (1.1-4.8); MEAN CORPUSCULAR HGB CONC 35.2 g/dL (33.0-36.5); MEAN CORPUSCULAR VOLUME 110.9 FL (78-98); MEAN PLATELET VOLUME 8.6 FL (7.4-10.4); MONOCYTES # (AUTO) 1.3 X10'3 (0-0.9); MONOCYTES % (AUTO) 8.8 % (2-12); NEUTROPHILS # (AUTO) 12.8 X10'3 (1.8-7.7); NEUTROPHILS % (AUTO) 86.2 % (42-75); PLATELET COUNT 58 X10'3 (140-440); RED BLOOD COUNT 2.61 X10'6 (4.70-6.10); RED CELL DISTRIBUTION WIDTH 14.9 % (11.5-14.5); WHITE BLOOD COUNT 14.9 X10'3 (4.5-11.0)
[2019-03-12 03:15] LABS: ALBUMIN/GLOBULIN RATIO 0.5 (1.1-1.5); ANION GAP 18 (8-16); CHLORIDE 72 MMOL/L (99-107); POTASSIUM 5.3 MMOL/L (3.5-5.1); TOTAL PROTEIN 6.3 G/DL (6.4-8.2)
[2019-03-12 03:19] LABS: SODIUM 113 MMOL/L (135-145)
[2019-03-12 05:47] LABS: PLATELET ESTIMATE DECREASED
--- NOTE | 2019-03-12 06:11 | NUR ---
I HAVE GIVEN REPORT TO MARIEL YOUNG. ALL QUESTIONS AND CONCERNS ADDRESSED AT THIS TIME.
--- NOTE | 2019-03-12 06:17 | NUR ---
Patient in room PCU 3016. I have received report from Marce FLOYD and had the opportunity to ask questions and assume patient care.
[2019-03-12 06:48] VITALS: BP 102/57
[2019-03-12] MEDS: OMEGA-3/DHA/EPA/FISH OIL 1 EACH CAPSULE.DR PO SCH (07:33)
[2019-03-12] MEDS: vitamin D (cholecalciferol) 1,000 unit tablet PO SCH ×2 (07:34→20:07)
[2019-03-12] MEDS: folic acid 1mg tablet PO SCH (07:34)
[2019-03-12] MEDS: thiamine 100mg tablet PO SCH (07:34)
[2019-03-12] MEDS: vitamin E 400 unit capsule PO SCH (07:35)
[2019-03-12] MEDS: multivitamins, therapeutics tablet PO SCH (07:35)
[2019-03-12] MEDS ORDERED: spironolactone 25 MG tablet PO SCH (08:00)
[2019-03-12 08:38] LABS: CLARITY,URINE CLEAR (Clear); COLOR,URINE ORANGE (Yellow)
[2019-03-12 08:43] LABS: UA COLLECTION TYPE NON-SPECIFIED
[2019-03-12 08:44] LABS: BACTERIA,URINE FEW /HPF (Neg); HYALINE CASTS 0-3 /LPF (NEGATIVE); MUCUS STRANDS FEW /LPF (Neg); RBC,URINE NONE SEEN /HPF (0-2); SQUAMOUS EPITHELIAL CELL,UR FEW /LPF (FEW); WBC,URINE 0-4 /HPF (0-4)
[2019-03-12 09:04] LABS: SODIUM,URINE RANDOM < 15 MEQ/L
[2019-03-12 09:20] LABS: OSMOLALITY UA 688 MOSM/K (50-1400)
[2019-03-12 11:00] VITALS: BP 112/68
[2019-03-12] MEDS: furosemide 20MG tablet PO SCH ×2 (14:02→20:08)
[2019-03-12] MEDS: sodium chloride 1gm tablet PO SCH ×3 (14:02→20:13)
[2019-03-12] MEDS: acetaminophen 325mg tablet PO PRN ×2 (14:02→21:47)
[2019-03-12 14:39] LABS: ALBUMIN 1.9 G/DL (3.4-5.0); ANION GAP 8 (8-16); BLOOD UREA NITROGEN 30 MG/DL (7-18); BUN/CREATININE RATIO 34.5 (5.4-32.0); CALCIUM 8.1 MG/DL (8.5-10.1); CHLORIDE 85 MMOL/L (99-107); CREATININE 0.87 MG/DL (0.60-1.10); TOTAL CARBON DIOXIDE 22.3 MMOL/L (24-32); eGFR > 90 ML/MIN
[2019-03-12 14:41] LABS: GLUCOSE 119 MG/DL (70-104); POTASSIUM 5.5 MMOL/L (3.5-5.1)
[2019-03-12 14:42] LABS: SODIUM 115 MMOL/L (135-145)
--- NOTE | 2019-03-12 14:47 | NUR ---
Received critical Na from lab of [address] Alvarez; there are no new orders PAGER ID: [phone] MESSAGE: Jacey [phone]. RE Maki Gill 3016A. Critical Na of 115 reported from lab.
[2019-03-12 15:00] VITALS: BP 104/65
[2019-03-12 17:18] LABS: ALANINE AMINOTRANSFERASE 59 U/L (12-78); ALBUMIN 1.9 G/DL (3.4-5.0); ALKALINE PHOSPHATASE 108 IU/L (46-116); ANION GAP 5 (8-16); BILIRUBIN,TOTAL 15.9 MG/DL (0.1-1.0); BLOOD UREA NITROGEN 31 MG/DL (7-18); CALCIUM 8.2 MG/DL (8.5-10.1); CHLORIDE 85 MMOL/L (99-107); TOTAL CARBON DIOXIDE 24.5 MMOL/L (24-32)
[2019-03-12 17:23] LABS: ALBUMIN/GLOBULIN RATIO 0.4 (1.1-1.5); ASPARTATE AMINO TRANSFERASE 83 U/L (10-37); BUN/CREATININE RATIO 33.7 (5.4-32.0); CREATININE 0.92 MG/DL (0.60-1.10); GLUCOSE 113 MG/DL (70-104); POTASSIUM 5.8 MMOL/L (3.5-5.1); TOTAL PROTEIN 6.3 G/DL (6.4-8.2); eGFR 86 ML/MIN
[2019-03-12 17:26] LABS: SODIUM 114 MMOL/L (135-145)
--- NOTE | 2019-03-12 18:00 | NUR ---
Patient in room PCU 3016. I have received report from Janes FLOYD and had the opportunity to ask questions and assume patient care.
--- NOTE | 2019-03-12 18:23 | NUR ---
Problems reprioritized. Patient report given, questions answered & plan of care reviewed with Roxana FLOYD.
[2019-03-12] MEDS ORDERED: sodium polystyrene sulfonate 15gm/60ml oral suspension PO ONE (18:30)
[2019-03-12] MEDS: temazepam 15mg capsule PO SCH (20:08)
[2019-03-12 23:00] VITALS: BP 98/63
[2019-03-12 23:15] LABS: ANION GAP 12 (8-16); BLOOD UREA NITROGEN 32 MG/DL (7-18); CHLORIDE 85 MMOL/L (99-107); GLUCOSE 112 MG/DL (70-104); POTASSIUM 5.6 MMOL/L (3.5-5.1); TOTAL CARBON DIOXIDE 22.4 MMOL/L (24-32)
[2019-03-12 23:16] LABS: ALANINE AMINOTRANSFERASE 59 U/L (12-78); ALBUMIN 1.9 G/DL (3.4-5.0); ALBUMIN/GLOBULIN RATIO 0.4 (1.1-1.5); ALKALINE PHOSPHATASE 107 IU/L (46-116); ASPARTATE AMINO TRANSFERASE 93 U/L (10-37); BILIRUBIN,TOTAL 16.2 MG/DL (0.1-1.0); BUN/CREATININE RATIO 31.7 (5.4-32.0); CALCIUM 8.5 MG/DL (8.5-10.1); CREATININE 1.01 MG/DL (0.60-1.10); TOTAL PROTEIN 6.6 G/DL (6.4-8.2); eGFR 77 ML/MIN
[2019-03-12 23:18] LABS: SODIUM 119 MMOL/L (135-145)
--- NOTE | 2019-03-12 23:28 | NUR ---
Patient in room U 3016. I have received report from Janes FLOYD and had the opportunity to ask questions and assume patient care with Paradise FLOYD. Addendum: 03/13/19 at 0056 by Roxana Alvarez RN incorrect time, time was 1830
[2019-03-13] VITALS (15 sets, daily range): BP systolic 94–124; BP diastolic 41–65
[2019-03-13] MEDS: furosemide 20MG tablet PO SCH ×3 (01:33→20:39)
--- NOTE | 2019-03-13 05:16 | NUR ---
Pt slept well tonight. Tylenol given for right leg pain, pt states it worsens with movement.
[2019-03-13 06:00] LABS: BASOPHILS % (AUTO) 0.3 % (0-1); EOSINOPHILS # (AUTO) 0.1 X10'3 (0-0.9); EOSINOPHILS % (AUTO) 0.6 % (0-6); HEMOGLOBIN 10.3 g/dl (14.0-17.9); LYMPHOCYTES # (AUTO) 0.5 X10'3 (1.1-4.8); MEAN CORPUSCULAR HEMOGLOBIN 38.7 PG (27.0-31.0); MEAN CORPUSCULAR HGB CONC 35.5 g/dL (33.0-36.5); MEAN PLATELET VOLUME 8.7 FL (7.4-10.4); MONOCYTES # (AUTO) 1.1 X10'3 (0-0.9); MONOCYTES % (AUTO) 8.3 % (2-12); NEUTROPHILS # (AUTO) 11.2 X10'3 (1.8-7.7); NEUTROPHILS % (AUTO) 86.8 % (42-75); PLATELET COUNT 64 X10'3 (140-440); RED BLOOD COUNT 2.66 X10'6 (4.70-6.10); RED CELL DISTRIBUTION WIDTH 15.2 % (11.5-14.5); WHITE BLOOD COUNT 12.9 X10'3 (4.5-11.0)
--- NOTE | 2019-03-13 06:00 | NUR ---
Patient in room PCU 3016. I have received report from MARIEL Ghotra and MARIEL Schmidt and had the opportunity to ask questions and assume patient care. Patient is currently resting in bed, asleep, no acute distress, will continue to monitor.
[2019-03-13 06:24] LABS: ALANINE AMINOTRANSFERASE 62 U/L (12-78); ALBUMIN 1.9 G/DL (3.4-5.0); ALKALINE PHOSPHATASE 101 IU/L (46-116); ANION GAP 9 (8-16); BILIRUBIN,TOTAL 17.4 MG/DL (0.1-1.0); BLOOD UREA NITROGEN 36 MG/DL (7-18); CALCIUM 7.8 MG/DL (8.5-10.1); CHLORIDE 85 MMOL/L (99-107); CREATININE 1.09 MG/DL (0.60-1.10); TOTAL CARBON DIOXIDE 21.9 MMOL/L (24-32); eGFR 70 ML/MIN
[2019-03-13 06:25] LABS: ALBUMIN/GLOBULIN RATIO 0.4 (1.1-1.5); ASPARTATE AMINO TRANSFERASE 84 U/L (10-37); GLUCOSE 96 MG/DL (70-104); POTASSIUM 5.4 MMOL/L (3.5-5.1); TOTAL PROTEIN 6.5 G/DL (6.4-8.2)
--- NOTE | 2019-03-13 06:25 | NUR ---
Problems reprioritized. Patient report given, questions answered & plan of care reviewed with Kailee and Marian RNs.
--- NOTE | 2019-03-13 06:25 | NUR ---
Problems reprioritized. Patient report given, questions answered & plan of care reviewed with Kailee FLOYD.
--- NOTE | 2019-03-13 06:26 | NUR ---
Orientee documentation: I have reviewed and agree with all interventions, assessments performed and documented by Paradise FLOYD.
[2019-03-13 06:42] LABS: SODIUM 116 MMOL/L (135-145)
--- NOTE | 2019-03-13 06:43 | NUR ---
Tammi notified of patient critical Na+ of 119 will change fluid restriction from 1.5L to 1L per order
[2019-03-13 06:48] LABS: TOTAL CELLS COUNTED 100
[2019-03-13 06:49] LABS: PLATELET ESTIMATE DECREASED
[2019-03-13 06:50] LABS: TOXIC GRANULATION 1+
[2019-03-13] MEDS: vitamin D (cholecalciferol) 1,000 unit tablet PO SCH ×2 (07:41→20:38)
[2019-03-13] MEDS: sodium chloride 1gm tablet PO SCH ×4 (07:41→20:38)
[2019-03-13] MEDS: multivitamins, therapeutics tablet PO SCH (07:41)
[2019-03-13] MEDS: thiamine 100mg tablet PO SCH (07:42)
[2019-03-13] MEDS: vitamin E 400 unit capsule PO SCH (07:42)
[2019-03-13] MEDS: folic acid 1mg tablet PO SCH (07:42)
[2019-03-13] MEDS: OMEGA-3/DHA/EPA/FISH OIL 1 EACH CAPSULE.DR PO SCH (07:42)
[2019-03-13] MEDS ORDERED: acetaminophen 325mg tablet PO PRN (09:35)
[2019-03-13 10:16] LABS: MAGNESIUM 2.1 MG/DL (1.5-2.4)
--- NOTE | 2019-03-13 10:25 | NUR ---
Dr. Alvarez at bedside, asked about kayexelate for patient's K level as well as getting a mag level drawn and ammonia. Dr. Alvarez did not want to order ammonia at this time as patient's mentation is normal. mag level was ordered and waiting for next set of labs to make a determination about kayexelate. Patient requesting a paracentesis, Dr. Burns came in and said that they were able to do it today. In progress at this time.
[2019-03-13] MEDS ORDERED: albumin (human) 25% 100 ML IV solution IV ONE (10:40)
[2019-03-13 14:58] LABS: ALANINE AMINOTRANSFERASE 60 U/L (12-78); ALBUMIN 2.2 G/DL (3.4-5.0); ALBUMIN/GLOBULIN RATIO 0.5 (1.1-1.5); ALKALINE PHOSPHATASE 98 IU/L (46-116); ANION GAP 8 (8-16); ASPARTATE AMINO TRANSFERASE 78 U/L (10-37); BILIRUBIN,TOTAL 18.1 MG/DL (0.1-1.0); BLOOD UREA NITROGEN 36 MG/DL (7-18); BUN/CREATININE RATIO 32.7 (5.4-32.0); CALCIUM 8.2 MG/DL (8.5-10.1); CHLORIDE 86 MMOL/L (99-107); GLUCOSE 134 MG/DL (70-104); POTASSIUM 4.7 MMOL/L (3.5-5.1); TOTAL CARBON DIOXIDE 20.7 MMOL/L (24-32); TOTAL PROTEIN 6.5 G/DL (6.4-8.2); eGFR 70 ML/MIN
[2019-03-13 14:59] LABS: SODIUM 115 MMOL/L (135-145)
--- NOTE | 2019-03-13 15:03 | NUR ---
PAGER ID: [phone] MESSAGE: MARIEL Fonseca ext [phone], [phone], Jairo. Critical value received: Sodium 115 Thank you
[2019-03-13 17:11] LABS: ALANINE AMINOTRANSFERASE 59 U/L (12-78); ALBUMIN 2.2 G/DL (3.4-5.0); ALKALINE PHOSPHATASE 97 IU/L (46-116); ANION GAP 6 (8-16); BILIRUBIN,TOTAL 17.7 MG/DL (0.1-1.0); BLOOD UREA NITROGEN 34 MG/DL (7-18); CALCIUM 8.4 MG/DL (8.5-10.1); CHLORIDE 86 MMOL/L (99-107); TOTAL CARBON DIOXIDE 24.7 MMOL/L (24-32)
[2019-03-13 17:13] LABS: ALBUMIN/GLOBULIN RATIO 0.5 (1.1-1.5); ASPARTATE AMINO TRANSFERASE 77 U/L (10-37); BUN/CREATININE RATIO 31.8 (5.4-32.0); CREATININE 1.07 MG/DL (0.60-1.10); GLUCOSE 101 MG/DL (70-104); POTASSIUM 4.9 MMOL/L (3.5-5.1); TOTAL PROTEIN 6.4 G/DL (6.4-8.2); eGFR 72 ML/MIN
[2019-03-13 17:15] LABS: SODIUM 117 MMOL/L (135-145)
--- NOTE | 2019-03-13 17:15 | NUR ---
PAGER ID: [phone] MESSAGE: Kailee FLOYD Ext [phone] Jairo CADE Na+117 Thank you
--- NOTE | 2019-03-13 18:15 | NUR ---
Problems reprioritized. Patient report given, questions answered & plan of care reviewed with MARIEL Cadet. Patient is currently resting in bed, bed locked and low, call light in reach. Stable at shift change.
--- NOTE | 2019-03-13 18:15 | NUR ---
Orientee documentation: I have reviewed and agree with all interventions, assessments performed and documented by Marian FLOYD. Orientee Medication Administration: For this medication-pass time frame, all medication were reviewed, dispensed, administered and documented per hospital policy by Marian FLOYD. Constructive criticism given as needed.
--- NOTE | 2019-03-13 18:26 | NUR ---
Patient in room PCU 3016. I have received report from Mendez FLOYD and had the opportunity to ask questions and assume patient care.
[2019-03-13] MEDS: temazepam 15mg capsule PO SCH (20:39)
[2019-03-13 22:48] LABS: ALANINE AMINOTRANSFERASE 56 U/L (12-78); ALBUMIN 1.9 G/DL (3.4-5.0); ALKALINE PHOSPHATASE 89 IU/L (46-116); ANION GAP 5 (8-16); BILIRUBIN,TOTAL 15.4 MG/DL (0.1-1.0); BLOOD UREA NITROGEN 33 MG/DL (7-18); BUN/CREATININE RATIO 36.3 (5.4-32.0); CALCIUM 7.8 MG/DL (8.5-10.1); CHLORIDE 87 MMOL/L (99-107); CREATININE 0.91 MG/DL (0.60-1.10); TOTAL CARBON DIOXIDE 25.3 MMOL/L (24-32); eGFR 87 ML/MIN
[2019-03-13 22:50] LABS: ALBUMIN/GLOBULIN RATIO 0.5 (1.1-1.5); ASPARTATE AMINO TRANSFERASE 69 U/L (10-37); GLUCOSE 134 MG/DL (70-104); POTASSIUM 4.5 MMOL/L (3.5-5.1); TOTAL PROTEIN 5.8 G/DL (6.4-8.2)
[2019-03-13 22:52] LABS: SODIUM 117 MMOL/L (135-145)
--- NOTE | 2019-03-13 22:58 | NUR ---
critical value Na 117 meq, no change since 1600 draw
[2019-03-14] MEDS: furosemide 20MG tablet PO SCH ×4 (02:13→20:00)
[2019-03-14 03:00] VITALS: BP 96/62
[2019-03-14 06:01] LABS: ALANINE AMINOTRANSFERASE 57 U/L (12-78); ALBUMIN 1.9 G/DL (3.4-5.0); ALKALINE PHOSPHATASE 102 IU/L (46-116); ANION GAP 9 (8-16); BILIRUBIN,TOTAL 14.9 MG/DL (0.1-1.0); BLOOD UREA NITROGEN 31 MG/DL (7-18); CHLORIDE 87 MMOL/L (99-107); TOTAL CARBON DIOXIDE 23.4 MMOL/L (24-32)
[2019-03-14 06:04] LABS: ALBUMIN/GLOBULIN RATIO 0.5 (1.1-1.5); ASPARTATE AMINO TRANSFERASE 75 U/L (10-37); BUN/CREATININE RATIO 36.9 (5.4-32.0); CREATININE 0.84 MG/DL (0.60-1.10); GLUCOSE 116 MG/DL (70-104); POTASSIUM 4.4 MMOL/L (3.5-5.1); TOTAL PROTEIN 6.1 G/DL (6.4-8.2); eGFR > 90 ML/MIN
[2019-03-14 06:07] LABS: SODIUM 119 MMOL/L (135-145)
--- NOTE | 2019-03-14 06:12 | NUR ---
Problems reprioritized. Patient report given, questions answered & plan of care reviewed with Kirsten FLOYD.
--- NOTE | 2019-03-14 06:15 | NUR ---
Patient in room PCU 3016. I have received report from MARIEL Cadet and had the opportunity to ask questions and assume patient care. Patient is currently resting in bed, bed locked and low, call light in reach. No acute distress, will continue to monitor.
[2019-03-14 06:21] LABS: BASOPHILS # (AUTO) 0.1 X10'3 (0-0.2); BASOPHILS % (AUTO) 0.4 % (0-1); EOSINOPHILS # (AUTO) 0.1 X10'3 (0-0.9); EOSINOPHILS % (AUTO) 0.7 % (0-6); HEMATOCRIT 24.7 % (42.0-52.0); HEMOGLOBIN 8.9 g/dl (14.0-17.9); LYMPHOCYTES # (AUTO) 0.5 X10'3 (1.1-4.8); LYMPHOCYTES % (AUTO) 3.7 % (21-51); MEAN CORPUSCULAR HEMOGLOBIN 39.2 PG (27.0-31.0); MEAN CORPUSCULAR HGB CONC 36.1 g/dL (33.0-36.5); MEAN CORPUSCULAR VOLUME 108.5 FL (78-98); MEAN PLATELET VOLUME 8.9 FL (7.4-10.4); MONOCYTES # (AUTO) 1.2 X10'3 (0-0.9); MONOCYTES % (AUTO) 9.4 % (2-12); NEUTROPHILS # (AUTO) 10.8 X10'3 (1.8-7.7); NEUTROPHILS % (AUTO) 85.8 % (42-75); RED BLOOD COUNT 2.28 X10'6 (4.70-6.10); RED CELL DISTRIBUTION WIDTH 15.4 % (11.5-14.5); WHITE BLOOD COUNT 12.5 X10'3 (4.5-11.0)
[2019-03-14 06:49] VITALS: BP 90/57
[2019-03-14 07:17] LABS: PLATELET COUNT 40 X10'3 (140-440); PLATELET ESTIMATE DECREASED
[2019-03-14 07:18] LABS: ANISOCYTOSIS 1+; BURR CELLS 1+
--- NOTE | 2019-03-14 07:24 | NUR ---
PAGER ID: [phone] MESSAGE: MARIEL Fonseca, ext [phone], Jairo, Received critical value: platelets 40
[2019-03-14] MEDS: vitamin E 400 unit capsule PO SCH (08:21)
[2019-03-14] MEDS: folic acid 1mg tablet PO SCH (08:22)
[2019-03-14] MEDS: sodium chloride 1gm tablet PO SCH ×4 (08:22→21:26)
[2019-03-14] MEDS: thiamine 100mg tablet PO SCH (08:22)
[2019-03-14] MEDS: vitamin D (cholecalciferol) 1,000 unit tablet PO SCH ×2 (08:22→21:27)
[2019-03-14] MEDS: OMEGA-3/DHA/EPA/FISH OIL 1 EACH CAPSULE.DR PO SCH (08:22)
[2019-03-14] MEDS: multivitamins, therapeutics tablet PO SCH (08:22)
[2019-03-14 11:00] VITALS: BP 115/61
--- NOTE | 2019-03-14 18:06 | NUR ---
Problems reprioritized. Patient report given, questions answered & plan of care reviewed with MARIEL Cadet. Patient currently resting in bed, family at bedside, in stable condition at shift change.
[2019-03-14 18:18] VITALS: BP 107/62
--- NOTE | 2019-03-14 18:32 | NUR ---
Patient in room PCU 3016. I have received report from Suki FLOYD and had the opportunity to ask questions and assume patient care.
[2019-03-14] MEDS: temazepam 15mg capsule PO SCH (21:26)
[2019-03-14 22:00] VITALS: BP 109/54
[2019-03-15 02:00] VITALS: BP 108/60
[2019-03-15] MEDS: furosemide 20MG tablet PO SCH ×2 (02:42→08:16)
[2019-03-15 05:12] LABS: BASOPHILS # (AUTO) 0.1 X10'3 (0-0.2); BASOPHILS % (AUTO) 0.6 % (0-1); EOSINOPHILS # (AUTO) 0.1 X10'3 (0-0.9); EOSINOPHILS % (AUTO) 0.9 % (0-6); HEMATOCRIT 24.9 % (42.0-52.0); HEMOGLOBIN 8.9 g/dl (14.0-17.9); LYMPHOCYTES # (AUTO) 0.7 X10'3 (1.1-4.8); LYMPHOCYTES % (AUTO) 6.1 % (21-51); MEAN CORPUSCULAR HGB CONC 35.6 g/dL (33.0-36.5); MEAN CORPUSCULAR VOLUME 109.5 FL (78-98); MONOCYTES # (AUTO) 0.9 X10'3 (0-0.9); MONOCYTES % (AUTO) 8.4 % (2-12); PLATELET COUNT 53 X10'3 (140-440); RED BLOOD COUNT 2.28 X10'6 (4.70-6.10); RED CELL DISTRIBUTION WIDTH 14.9 % (11.5-14.5); WHITE BLOOD COUNT 10.8 X10'3 (4.5-11.0)
[2019-03-15 05:32] LABS: ALANINE AMINOTRANSFERASE 62 U/L (12-78); ALBUMIN 1.8 G/DL (3.4-5.0); ALKALINE PHOSPHATASE 111 IU/L (46-116); ANION GAP 3 (8-16); ASPARTATE AMINO TRANSFERASE 87 U/L (10-37); BILIRUBIN,TOTAL 11.7 MG/DL (0.1-1.0); BLOOD UREA NITROGEN 28 MG/DL (7-18); BUN/CREATININE RATIO 28.6 (5.4-32.0); CALCIUM 7.7 MG/DL (8.5-10.1); CHLORIDE 90 MMOL/L (99-107); CREATININE 0.98 MG/DL (0.60-1.10); GLUCOSE 114 MG/DL (70-104); POTASSIUM 4.4 MMOL/L (3.5-5.1); TOTAL CARBON DIOXIDE 26.7 MMOL/L (24-32); eGFR 80 ML/MIN
[2019-03-15 05:41] LABS: ALBUMIN/GLOBULIN RATIO 0.5 (1.1-1.5); TOTAL PROTEIN 5.8 G/DL (6.4-8.2)
[2019-03-15 05:49] LABS: SODIUM 120 MMOL/L (135-145)
[2019-03-15 06:00] VITALS: BP 96/52
--- NOTE | 2019-03-15 06:20 | NUR ---
Patient in room PCU 3016. I have received report from Chichi FLOYD and had the opportunity to ask questions and assume patient care.
--- NOTE | 2019-03-15 07:04 | NUR ---
Problems reprioritized. Patient report given, questions answered & plan of care reviewed with Aamir FLOYD.
[2019-03-15] MEDS: vitamin E 400 unit capsule PO SCH (08:16)
[2019-03-15] MEDS: OMEGA-3/DHA/EPA/FISH OIL 1 EACH CAPSULE.DR PO SCH (08:16)
[2019-03-15] MEDS: sodium chloride 1gm tablet PO SCH (08:17)
[2019-03-15] MEDS: multivitamins, therapeutics tablet PO SCH (08:17)
[2019-03-15] MEDS: thiamine 100mg tablet PO SCH (08:17)
[2019-03-15] MEDS: vitamin D (cholecalciferol) 1,000 unit tablet PO SCH (08:17)
[2019-03-15] MEDS: folic acid 1mg tablet PO SCH (08:17)
[2019-03-15] MEDS ORDERED: SODI1TAB2 PO (09:19)
[2019-03-15] MEDS ORDERED: FURO20TA4 PO (09:19)
--- NOTE | 2019-03-15 09:52 | NUR ---
Nutrition consult: Pt pending d/c w/ ESLD and SIADH. Pt/daughter seen at bedside by AYAN for written/verbal high protein and ESLD eds. Given Na 120 w/ SIADH RD encouraged pt to continue 1L fluid restriction at home, focus on high protein food sources including protein supplementation options, NOT limit Na intake or add excess given SIADH, and thiamin/B12/MVI for ESLD. Pt daughter reports pt takes B12/MVI/thiamin at home but needs encouragement for protein PO. Addendum: 03/15/19 at [address] Amended: Links added.
--- NOTE | 2019-03-15 10:07 | NUR ---
Prescriptions phoned to [facility] in [place], [place]
--- NOTE | 2019-03-15 10:45 | NUR ---
Pt DC'd home wth daughter. IV removed, canula intact. Tele-box removed and returned to tele-tech. DC paperwork gone over with Pt and daughter. Allowed Pt and daughter to ask questions concerning DC and then answer them. Went over DC instructions with Pt, as well as new medications and current meds. New meds called into [facility] pharmacy in [place]. Pt has follow up appt with Dr. Flaherty in [place] on March 22 at 1130 for hepatology follow up. Pt will make follow up appt with PCP provider as well. Pt's belongings gathered and sent with Pt. Pt wheeled down to lobby via wheelchair by aid and then left in private vehicle with daughter.
== END 2019-03-15 10:45 | disposition home or self-care (01) | DRG 280 ==
LOC: ER 20:06 → PCU 3S 23:54 → CMPBEDREQ 03-12 17:25
PROVIDERS: ADMIT Hospitalist; ATTEND Family Medicine
PROC: 0W9G3ZZ Drainage of Peritoneal Cavity, Percutaneous Approach (ICD-10-PCS; principal; 2019-03-13)
DX: K70.31 Alcoholic cirrhosis of liver with ascites (principal); E43 Unspecified severe protein-calorie malnutrition; D69.59 Other secondary thrombocytopenia; E22.2 Syndrome of inappropriate secretion of antidiuretic hormone; E87.5 Hyperkalemia; K72.10 Chronic hepatic failure without coma; D53.9 Nutritional anemia, unspecified; D72.829 Elevated white blood cell count, unspecified; Z79.899 Other long term (current) drug therapy; Z80.6 Family history of leukemia; Z68.33 Body mass index [BMI] 33.0-33.9, adult
CPT/HCPCS: 36415; 49083; 71045; 74176; 76937; 80048; 80053; 80320; 81001; 82140; 83735; 83935; 84300; 84484; 85025; 85610; 85730; 87081; 93005; 97116; 97530; 99285; G0378; J2405; P9047

== ENCOUNTER 2019-03-20 06:07 | Day surgery (SDC) | payer MEDICAID ==
[~2019-03-20] VITALS: Ht 177.8 cm; Wt 108.2 kg
[2019-03-20] VITALS (7 sets, daily range): BP systolic 105–137; BP diastolic 54–69
[~2019-03-20 06:07] MED LIST changes: +FURO20TA4 PO; +SODI1TAB2 PO; -VITA1TAB20 PO
[2019-03-20] MEDS ORDERED: normal saline 1000ml 1,000 ML IV PRN (06:30)
[2019-03-20] MEDS ORDERED: SODI1TAB2 PO (06:31)
[2019-03-20] MEDS ORDERED: CYAN250014 (06:31)
[2019-03-20] MEDS ORDERED: FURO-150 PO (06:31)
[2019-03-20] MEDS ORDERED: FOLI1TAB16 PO (06:31)
[2019-03-20] MEDS: albumin 25% 100mL bottle x 1 IV PRN ×2 (08:19→08:52)
== END 2019-03-20 09:30 | disposition home or self-care (01) ==
LOC: SSTAY O 06:07
PROVIDERS: ATTEND Radiology Diagnostic Radiology
DX: R18.8 Other ascites (principal); K74.60 Unspecified cirrhosis of liver
CPT/HCPCS: 49083; C1729; J7030; P9047

== ENCOUNTER 2019-03-30 07:09 | Day surgery (SDC) | payer MEDICAID ==
[~2019-03-30] VITALS: Ht 177.8 cm; Wt 100.9 kg
[2019-03-30] VITALS (15 sets, daily range): BP systolic 95–119; BP diastolic 44–70
[~2019-03-30 07:09] MED LIST changes: +CYAN250014; +FURO-150 PO; -FURO20TA4 PO
[2019-03-30] MEDS ORDERED: normal saline 1000ml 1,000 ML IV PRN (07:25)
[2019-03-30] MEDS ORDERED: albumin 25% 100mL bottle x 1 IV PRN (07:25)
[2019-03-30] MEDS ORDERED: LACT10SO PO (07:48)
[2019-03-30] MEDS ORDERED: VITA1CAP PO (07:48)
[2019-03-30] MEDS ORDERED: CIPR-259 PO (07:48)
[2019-03-30] MEDS ORDERED: ZIN220C PO (07:48)
[2019-03-30] MEDS ORDERED: [UNRECOGNIZED DRUG - CODE] PO (07:48)
== END 2019-03-30 11:00 | disposition home or self-care (01) ==
LOC: SSTAY O 07:09
PROVIDERS: ATTEND Radiology Diagnostic Radiology
DX: R18.8 Other ascites (principal); K74.60 Unspecified cirrhosis of liver; E11.9 Type 2 diabetes mellitus without complications; Z79.899 Other long term (current) drug therapy; Z80.6 Family history of leukemia
CPT/HCPCS: 49083; C1729; J7030; P9047

== ENCOUNTER 2019-04-16 07:46 | Day surgery (SDC) | payer MEDICAID ==
[~2019-04-16] VITALS: Ht 175.3 cm; Wt 102.1 kg
[~2019-04-16 07:46] MED LIST changes: +CIPR-259 PO; -CYAN250014; -FOLI1TAB16 PO; -FURO-150 PO; +LACT10SO PO; -OMEG1CAP2 PO; -SODI1TAB2 PO; -SPIR100T5 PO; -TEMA15CA PO; -THIA100T70 PO; +VITA1CAP PO; +ZIN220C PO; +[UNRECOGNIZED DRUG - CODE] PO
[2019-04-16 07:55] VITALS: BP 102/70
[2019-04-16] MEDS ORDERED: normal saline 1000ml 1,000 ML IV PRN (08:00)
[2019-04-16] MEDS ORDERED: FURO-150 PO (08:02)
[2019-04-16] MEDS ORDERED: SODIUM PO (08:02)
[2019-04-16] MEDS ORDERED: albumin (human) 25% 100 ML IV solution IV PRN (10:30)
[2019-04-16 10:57] VITALS: BP 101/58
[2019-04-16 11:15] VITALS: BP 101/56
== END 2019-04-16 11:30 | disposition home or self-care (01) ==
LOC: SSTAY O 07:46
PROVIDERS: ATTEND Radiology Diagnostic Radiology
DX: R18.8 Other ascites (principal); K74.60 Unspecified cirrhosis of liver
CPT/HCPCS: 49083; C1729; J7030; P9047

== ENCOUNTER 2019-04-25 05:57 | Day surgery (SDC) | payer MEDICAID ==
[2019-04-25] VITALS (8 sets, daily range): BP systolic 90–142; BP diastolic 52–66
[~2019-04-25] VITALS: Ht 175.3 cm; Wt 107.0 kg
[~2019-04-25 05:57] MED LIST changes: +FURO-150 PO; +SODIUM PO
[2019-04-25] MEDS ORDERED: mag hydrox/Alum hydrox/simeth 30ml oral suspension PO ONE (08:30)
[2019-04-25] MEDS: albumin 25% 100mL bottle x 1 IV PRN ×2 (08:42→09:12)
== END 2019-04-25 09:40 | disposition home or self-care (01) ==
LOC: SSTAY O 05:57
PROVIDERS: ATTEND Radiology Diagnostic Radiology
DX: R18.8 Other ascites (principal); K74.60 Unspecified cirrhosis of liver
CPT/HCPCS: 49083; C1729; P9047

== ENCOUNTER 2019-05-03 08:13 | Day surgery (SDC) | payer MEDICAID ==
[2019-05-03] VITALS (7 sets, daily range): BP systolic 83–100; BP diastolic 40–61
[~2019-05-03] VITALS: Ht 175.3 cm; Wt 108.8 kg
[2019-05-03] MEDS ORDERED: normal saline 1000ml 1,000 ML IV PRN (08:45)
[2019-05-03] MEDS ORDERED: RIFA550T PO (08:55)
[2019-05-03] MEDS: albumin 25% 100mL bottle x 1 IV PRN ×3 (10:22→11:27)
== END 2019-05-03 12:11 | disposition home or self-care (01) ==
LOC: SSTAY O 08:13
PROVIDERS: ATTEND Radiology Diagnostic Radiology
DX: K70.31 Alcoholic cirrhosis of liver with ascites (principal); M10.9 Gout, unspecified; F10.10 Alcohol abuse, uncomplicated; E87.1 Hypo-osmolality and hyponatremia; E66.9 Obesity, unspecified; Z68.32 Body mass index [BMI] 32.0-32.9, adult; Z79.899 Other long term (current) drug therapy; F12.90 Cannabis use, unspecified, uncomplicated
CPT/HCPCS: 49083; C1729; J7030; P9047

== ENCOUNTER 2019-05-11 08:55 | Day surgery (SDC) | payer MEDICAID ==
[2019-05-11] VITALS (21 sets, daily range): BP systolic 93–117; BP diastolic 52–72
[~2019-05-11] VITALS: Ht 175.3 cm; Wt 109.9 kg
[~2019-05-11 08:55] MED LIST changes: +RIFA550T PO
[2019-05-11] MEDS ORDERED: SPIR100T5 PO (09:16)
[2019-05-11] MEDS: albumin 25% 100mL bottle x 1 IV PRN ×3 (09:25→11:26)
== END 2019-05-11 12:35 | disposition home or self-care (01) ==
LOC: SSTAY O 08:55
PROVIDERS: ATTEND Radiology Diagnostic Radiology
DX: K70.31 Alcoholic cirrhosis of liver with ascites (principal); E11.9 Type 2 diabetes mellitus without complications; E87.1 Hypo-osmolality and hyponatremia; Z79.899 Other long term (current) drug therapy
CPT/HCPCS: 49083; C1729; P9047

== ENCOUNTER 2019-05-18 08:17 | Day surgery (SDC) | payer MEDICAID ==
[~2019-05-18] VITALS: Ht 175.3 cm; Wt 108.4 kg
[2019-05-18] VITALS (11 sets, daily range): BP systolic 94–129; BP diastolic 55–67
[~2019-05-18 08:17] MED LIST changes: -CIPR-259 PO; +SPIR100T5 PO
[2019-05-18] MEDS ORDERED: normal saline 1000ml 1,000 ML IV PRN (08:40)
[2019-05-18] MEDS: albumin 25% 100mL bottle x 1 IV PRN ×2 (11:27→11:28)
== END 2019-05-18 12:10 | disposition home or self-care (01) ==
LOC: SSTAY O 08:17
PROVIDERS: ATTEND Radiology Vascular & Interventional Radiology
DX: K70.31 Alcoholic cirrhosis of liver with ascites (principal); M10.9 Gout, unspecified; E87.1 Hypo-osmolality and hyponatremia; E78.5 Hyperlipidemia, unspecified; F12.90 Cannabis use, unspecified, uncomplicated; E11.9 Type 2 diabetes mellitus without complications; E66.9 Obesity, unspecified; Z68.32 Body mass index [BMI] 32.0-32.9, adult; Z79.899 Other long term (current) drug therapy; Z80.6 Family history of leukemia
CPT/HCPCS: 49083; C1729; J7030; P9047

== ENCOUNTER 2019-05-25 06:58 | Day surgery (SDC) | payer MEDICAID ==
[2019-05-25] VITALS (9 sets, daily range): BP systolic 89–104; BP diastolic 56–68
[~2019-05-25] VITALS: Ht 175.3 cm; Wt 109.8 kg
[~2019-05-25 06:58] MED LIST changes: +VITA-134 PO; -VITA400C65 PO
[2019-05-25] MEDS ORDERED: normal saline 1000ml 1,000 ML IV PRN (07:25)
[2019-05-25] MEDS ORDERED: OMEG-169 PO (07:34)
[2019-05-25] MEDS: albumin 25% 100mL bottle x 1 IV PRN ×2 (08:51→09:28)
== END 2019-05-25 10:20 | disposition home or self-care (01) ==
LOC: SSTAY O 06:58
PROVIDERS: ATTEND Radiology Diagnostic Radiology
DX: K70.31 Alcoholic cirrhosis of liver with ascites (principal); E78.5 Hyperlipidemia, unspecified; R10.9 Unspecified abdominal pain; F10.21 Alcohol dependence, in remission
CPT/HCPCS: 49083; J7030; P9047

== ENCOUNTER 2019-05-25 10:22 | Emergency (ER) | payer MEDICAID ==
[~2019-05-25] VITALS: Ht 175.3 cm; Wt 100.0 kg
[~2019-05-25 10:22] MED LIST changes: +OMEG-169 PO
[2019-05-25 12:48] LABS: BASOPHILS % (AUTO) 0.5 % (0-1); EOSINOPHILS % (AUTO) 0.9 % (0-6); HEMOGLOBIN 7.3 g/dl (14.0-17.9); LYMPHOCYTES # (AUTO) 0.7 X10'3 (1.1-4.8); LYMPHOCYTES % (AUTO) 19.2 % (21-51); MEAN CORPUSCULAR HEMOGLOBIN 32.8 PG (27.0-31.0); MEAN CORPUSCULAR HGB CONC 34.6 g/dL (33.0-36.5); MEAN CORPUSCULAR VOLUME 94.6 FL (78-98); MONOCYTES # (AUTO) 0.4 X10'3 (0-0.9); MONOCYTES % (AUTO) 11.5 % (2-12); NEUTROPHILS # (AUTO) 2.3 X10'3 (1.8-7.7); NEUTROPHILS % (AUTO) 67.9 % (42-75); RED BLOOD COUNT 2.22 X10'6 (4.70-6.10); RED CELL DISTRIBUTION WIDTH 18.5 % (11.5-14.5); WHITE BLOOD COUNT 3.4 X10'3 (4.5-11.0)
[2019-05-25 13:07] LABS: PLATELET COUNT 40 X10'3 (140-440)
[2019-05-25 13:09] LABS: PLATELET ESTIMATE DECREASED
[2019-05-25 13:10] LABS: ACANTHOCYTES 1+; ANISOCYTOSIS 2+; BURR CELLS 2+; HYPOCHROMASIA 1+; POLYCHROMASIA 1+
[2019-05-25 13:27] VITALS: BP 90/60
== END 2019-05-25 13:29 | disposition home or self-care (01) ==
LOC: ER 10:23
DX: K70.30 Alcoholic cirrhosis of liver without ascites (principal); D64.89 Other specified anemias; Z79.899 Other long term (current) drug therapy
CPT/HCPCS: 36415; 85025; 99283

== ENCOUNTER 2019-06-01 05:53 | Day surgery (SDC) | payer MEDICAID ==
[~2019-06-01] VITALS: Ht 175.3 cm; Wt 112.9 kg
[2019-06-01] VITALS (11 sets, daily range): BP systolic 89–119; BP diastolic 49–63
[~2019-06-01 05:53] MED LIST changes: -SPIR100T5 PO; -VITA-134 PO; -VITA1CAP PO; -ZIN220C PO; -[UNRECOGNIZED DRUG - CODE] PO
[2019-06-01] MEDS ORDERED: normal saline 1000ml 1,000 ML IV PRN (06:15)
[2019-06-01] MEDS ORDERED: KAY15L PO (06:34)
[2019-06-01 09:04] LABS: ALBUMIN 2.7 G/DL (3.4-5.0); ANION GAP 8 (8-16); BLOOD UREA NITROGEN 32 MG/DL (7-18); BUN/CREATININE RATIO 16.5 (5.4-32.0); CALCIUM 8.3 MG/DL (8.5-10.1); CHLORIDE 97 MMOL/L (99-107); CREATININE 1.94 MG/DL (0.60-1.10); GLUCOSE 119 MG/DL (70-104); POTASSIUM 5.4 MMOL/L (3.5-5.1); SODIUM 125 MMOL/L (135-145); TOTAL CARBON DIOXIDE 20.4 MMOL/L (24-32); eGFR 36 ML/MIN
[2019-06-01] MEDS: albumin 25% 100mL bottle x 1 IV PRN ×3 (09:05→09:34)
== END 2019-06-01 11:20 | disposition home or self-care (01) ==
LOC: SSTAY O 05:53
PROVIDERS: ATTEND Radiology Diagnostic Radiology
DX: R18.8 Other ascites (principal); K74.60 Unspecified cirrhosis of liver
CPT/HCPCS: 36415; 49083; 80048; C1729; J7030; P9047

== ENCOUNTER 2019-06-08 07:25 | Day surgery (SDC) | payer MEDICAID, OTHER ==
[~2019-06-08] VITALS: Ht 177.8 cm; Wt 111.4 kg
[~2019-06-08 07:25] MED LIST changes: +KAY15L PO
[2019-06-08] MEDS ORDERED: normal saline 1000ml 1,000 ML IV PRN (07:45)
[2019-06-08 08:56] VITALS: BP 96/66
[2019-06-08] MEDS: albumin 25% 100mL bottle x 1 IV PRN ×3 (09:20→10:04)
[2019-06-08 09:30] VITALS: BP 107/70
[2019-06-08 09:45] VITALS: BP 107/67
[2019-06-08 10:00] VITALS: BP 107/64
[2019-06-08 10:15] VITALS: BP 104/55
[2019-06-08 10:30] VITALS: BP 100/55
== END 2019-06-08 10:44 | disposition home or self-care (01) ==
LOC: SSTAY O 07:25
PROVIDERS: ATTEND Radiology Diagnostic Radiology
DX: K70.31 Alcoholic cirrhosis of liver with ascites (principal); E11.9 Type 2 diabetes mellitus without complications; E87.1 Hypo-osmolality and hyponatremia; M19.90 Unspecified osteoarthritis, unspecified site; I10 Essential (primary) hypertension; I48.91 Unspecified atrial fibrillation; J45.909 Unspecified asthma, uncomplicated; F17.210 Nicotine dependence, cigarettes, uncomplicated; Z90.49 Acquired absence of other specified parts of digestive tract; Z98.890 Other specified postprocedural states; Z79.899 Other long term (current) drug therapy; Z79.82 Long term (current) use of aspirin; Z72.89 Other problems related to lifestyle; Z88.1 Allergy status to other antibiotic agents; Z85.118 Personal history of other malignant neoplasm of bronchus and lung; Z80.6 Family history of leukemia
CPT/HCPCS: 49083; C1729; J7030; P9047

== ENCOUNTER 2019-06-15 06:28 | Day surgery (SDC) | payer MEDICAID, OTHER ==
[2019-06-15] VITALS (9 sets, daily range): BP systolic 90–99; BP diastolic 53–68
[~2019-06-15] VITALS: Ht 175.3 cm; Wt 110.0 kg
[~2019-06-15 06:28] MED LIST changes: -KAY15L PO; -SODIUM PO
[2019-06-15] MEDS ORDERED: normal saline 1000ml 1,000 ML IV PRN (06:50)
[2019-06-15] MEDS ORDERED: albumin (human) 25% 100ml IV 100 ML IV PRN (08:25)
[2019-06-15] MEDS ORDERED: albumin (human) 25% 100 ML IV solution IV ONE (09:00)
== END 2019-06-15 10:00 | disposition home or self-care (01) ==
LOC: SSTAY O 06:28
PROVIDERS: ATTEND Radiology Vascular & Interventional Radiology
DX: K70.31 Alcoholic cirrhosis of liver with ascites (principal)
CPT/HCPCS: 49083; C1729; J7030; P9047

== ENCOUNTER 2019-07-03 07:53 | Day surgery (SDC) | payer MEDICAID, OTHER ==
[2019-07-03] VITALS (7 sets, daily range): BP systolic 103–120; BP diastolic 60–73
[~2019-07-03] VITALS: Ht 175.3 cm; Wt 105.3 kg
[~2019-07-03 07:53] MED LIST changes: -FURO-150 PO
[2019-07-03] MEDS ORDERED: albumin 25% 100mL bottle x 1 IV PRN (08:15)
[2019-07-03] MEDS ORDERED: normal saline 1000ml 1,000 ML IV PRN (08:15)
[2019-07-03] MEDS ORDERED: FURO-150 PO (08:18)
[2019-07-03] MEDS ORDERED: SODIUM PO (08:18)
== END 2019-07-03 10:30 | disposition home or self-care (01) ==
LOC: SSTAY O 07:53
PROVIDERS: ATTEND Radiology Diagnostic Radiology
DX: R18.8 Other ascites (principal)
CPT/HCPCS: 49083; C1729; J7030; P9047

== ENCOUNTER 2019-07-24 07:29 | Day surgery (SDC) | payer MEDICAID, OTHER ==
[~2019-07-24] VITALS: Ht 175.3 cm; Wt 102.1 kg
[2019-07-24] VITALS (7 sets, daily range): BP systolic 93–129; BP diastolic 55–82
[~2019-07-24 07:29] MED LIST changes: +FURO-150 PO; +SODIUM PO
[2019-07-24] MEDS ORDERED: normal saline 1000ml 1,000 ML IV PRN (07:55)
[2019-07-24] MEDS ORDERED: ZINC220C12 PO (08:06)
[2019-07-24] MEDS ORDERED: SPIR25TA5 PO (08:06)
[2019-07-24] MEDS ORDERED: CIPR-259 PO (08:06)
[2019-07-24] MEDS ORDERED: ROPI0.5T2 PO (08:06)
[2019-07-24] MEDS ORDERED: PANT40TA4 PO (08:06)
[2019-07-24] MEDS ORDERED: MIDO10TA PO (08:06)
[2019-07-24] MEDS: albumin 25% 100mL bottle x 1 IV PRN ×2 (08:55→09:32)
== END 2019-07-24 10:45 | disposition home or self-care (01) ==
LOC: SSTAY O 07:29
PROVIDERS: ATTEND Radiology Diagnostic Radiology
DX: R18.8 Other ascites (principal)
CPT/HCPCS: 49083; C1729; J7030; P9047

== ENCOUNTER 2019-08-03 15:56 | Inpatient (IN) | payer MEDICAID, OTHER ==
[~2019-08-03] VITALS: Ht 175.3 cm; Wt 96.8 kg
[~2019-08-03 15:56] MED LIST changes: +CIPR-259 PO; +MIDO10TA PO; +PANT40TA4 PO; +ROPI0.5T2 PO; -SODIUM PO; +SPIR25TA5 PO; +ZINC220C12 PO
[2019-08-03 17:26] LABS: BASOPHILS % (AUTO) 0.2 % (0-1); EOSINOPHILS # (AUTO) 0.1 X10'3 (0-0.9); EOSINOPHILS % (AUTO) 1.6 % (0-6); HEMATOCRIT 23.1 % (42.0-52.0); HEMOGLOBIN 8.1 g/dl (14.0-17.9); LYMPHOCYTES # (AUTO) 0.5 X10'3 (1.1-4.8); LYMPHOCYTES % (AUTO) 11.6 % (21-51); MEAN CORPUSCULAR HEMOGLOBIN 32.8 PG (27.0-31.0); MEAN CORPUSCULAR HGB CONC 34.9 g/dL (33.0-36.5); MEAN PLATELET VOLUME 10.2 FL (7.4-10.4); MONOCYTES # (AUTO) 0.4 X10'3 (0-0.9); MONOCYTES % (AUTO) 9.8 % (2-12); NEUTROPHILS % (AUTO) 76.8 % (42-75); RED BLOOD COUNT 2.46 X10'6 (4.70-6.10); WHITE BLOOD COUNT 3.9 X10'3 (4.5-11.0)
[2019-08-03 17:33] LABS: ALANINE AMINOTRANSFERASE 33 U/L (12-78); ALBUMIN 3.7 G/DL (3.4-5.0); ALKALINE PHOSPHATASE 122 IU/L (46-116); ANION GAP 11 (8-16); ASPARTATE AMINO TRANSFERASE 46 U/L (10-37); BILIRUBIN,TOTAL 4.5 MG/DL (0.1-1.0); BLOOD UREA NITROGEN 54 MG/DL (7-18); BUN/CREATININE RATIO 11.8 (5.4-32.0); CALCIUM 9.3 MG/DL (8.5-10.1); CHLORIDE 102 MMOL/L (99-107); CREATININE 4.56 MG/DL (0.60-1.10); GLUCOSE 133 MG/DL (70-104); POTASSIUM 3.9 MMOL/L (3.5-5.1); SODIUM 134 MMOL/L (135-145); TOTAL CARBON DIOXIDE 20.8 MMOL/L (24-32); eGFR 13 ML/MIN
[2019-08-03 17:34] LABS: ALBUMIN/GLOBULIN RATIO 1.2 (1.1-1.5); TOTAL PROTEIN 6.9 G/DL (6.4-8.2)
[2019-08-03 17:43] LABS: LIPASE 110 U/L (73-393); TROPONIN I < 0.04 NG/ML (0.0-0.05)
[2019-08-03 17:45] LABS: PLATELET COUNT 30 X10'3 (140-440)
[2019-08-03 17:58] LABS: ANISOCYTOSIS 3+; HYPOCHROMASIA 1+; PLATELET ESTIMATE DECREASED; POLYCHROMASIA FEW
[2019-08-03 17:59] LABS: ACANTHOCYTES 2+; BURR CELLS FEW; SCHISTOCYTES FEW
[2019-08-03] MEDS ORDERED: normal saline 1000ML IV soln IVB ONE (18:50)
[2019-08-03] MEDS ORDERED: VITE1000C PO (19:26)
[2019-08-03] MEDS ORDERED: CHOL400T14 PO (19:26)
[2019-08-03] MEDS ORDERED: VITA1CAP (19:30)
[2019-08-03] MEDS ORDERED: FISH12002 PO (19:31)
[2019-08-03] MEDS ORDERED: ondansetron/PF 4mg/2ml inj IV PRN (20:05)
[2019-08-03] MEDS: ROPINIRole 0.25mg tablet PO SCH (21:00)
[2019-08-03 21:43] VITALS: BP 120/57
[2019-08-03] MEDS: lactulose 20gm/30ml cup PO SCH (21:59)
[2019-08-03] MEDS: midodrine tablet 2.5 MG TABLET PO SCH (21:59)
[2019-08-03] MEDS: normal saline 1000ml 1,000 ML IV SCH (22:00)
[2019-08-04] VITALS: BP 120/57
[2019-08-04 03:26] LABS: BASOPHILS % (AUTO) 0.4 % (0-1); EOSINOPHILS # (AUTO) 0.1 X10'3 (0-0.9); EOSINOPHILS % (AUTO) 2.2 % (0-6); HEMOGLOBIN 7.1 g/dl (14.0-17.9); LYMPHOCYTES # (AUTO) 0.5 X10'3 (1.1-4.8); LYMPHOCYTES % (AUTO) 16.5 % (21-51); MEAN CORPUSCULAR HEMOGLOBIN 32.7 PG (27.0-31.0); MEAN CORPUSCULAR HGB CONC 34.7 g/dL (33.0-36.5); MEAN CORPUSCULAR VOLUME 94.4 FL (78-98); MEAN PLATELET VOLUME 9.9 FL (7.4-10.4); MONOCYTES # (AUTO) 0.3 X10'3 (0-0.9); MONOCYTES % (AUTO) 9.9 % (2-12); RED BLOOD COUNT 2.17 X10'6 (4.70-6.10); RED CELL DISTRIBUTION WIDTH 20.8 % (11.5-14.5); WHITE BLOOD COUNT 2.9 X10'3 (4.5-11.0)
[2019-08-04 03:33] LABS: HEMATOCRIT 20.5 % (42.0-52.0)
[2019-08-04 03:34] LABS: PLATELET COUNT 25 X10'3 (140-440)
[2019-08-04 03:35] LABS: ALANINE AMINOTRANSFERASE 27 U/L (12-78); ALBUMIN 3.2 G/DL (3.4-5.0); ALKALINE PHOSPHATASE 91 IU/L (46-116); ANION GAP 11 (8-16); ASPARTATE AMINO TRANSFERASE 41 U/L (10-37); BLOOD UREA NITROGEN 52 MG/DL (7-18); BUN/CREATININE RATIO 12.1 (5.4-32.0); CHLORIDE 103 MMOL/L (99-107); CREATININE 4.31 MG/DL (0.60-1.10); GLUCOSE 100 MG/DL (70-104); POTASSIUM 3.8 MMOL/L (3.5-5.1); SODIUM 135 MMOL/L (135-145); TOTAL CARBON DIOXIDE 20.6 MMOL/L (24-32); eGFR 14 ML/MIN
[2019-08-04 04:03] LABS: TOTAL PROTEIN 6.3 G/DL (6.4-8.2)
[2019-08-04 04:41] LABS: ACANTHOCYTES 2+; ANISOCYTOSIS 3+; BURR CELLS FEW; HYPOCHROMASIA 1+; PLATELET ESTIMATE DECREASED; POLYCHROMASIA FEW; TOTAL CELLS COUNTED 100
--- NOTE | 2019-08-04 06:31 | NUR ---
Problems reprioritized. Patient report given, questions answered & plan of care reviewed with Serena FLOYD.
--- NOTE | 2019-08-04 06:31 | NUR ---
Patient in room [facility] 345. I have received report from MARIEL Carty and had the opportunity to ask questions and assume patient care.
[2019-08-04 07:00] VITALS: BP 107/55
[2019-08-04] MEDS ORDERED: ciprofloxacin 250mg tablet PO SCH (08:00)
[2019-08-04] MEDS: zinc sulfate 220mg capsule PO SCH (08:05)
[2019-08-04] MEDS: lactulose 20gm/30ml cup PO SCH ×3 (08:05→21:31)
[2019-08-04] MEDS: vitamin E 400 unit capsule PO SCH (08:05)
[2019-08-04] MEDS: multivitamins, therapeutics tablet PO SCH (08:06)
[2019-08-04] MEDS: ROPINIRole 0.25mg tablet PO SCH ×3 (08:06→21:30)
[2019-08-04] MEDS: rifaximin 550mg tablet PO SCH ×2 (08:06→20:01)
[2019-08-04] MEDS: pantoprazole 40mg Tablet.DR PO SCH (08:06)
[2019-08-04] MEDS: spironolactone 25 MG tablet PO SCH (08:06)
[2019-08-04] MEDS: midodrine tablet 2.5 MG TABLET PO SCH ×2 (08:06→20:02)
[2019-08-04] MEDS: normal saline 1000ml 1,000 ML IV SCH ×2 (08:07→17:59)
[2019-08-04 11:00] VITALS: BP 109/66
--- NOTE | 2019-08-04 16:03 | NUR ---
PATIENT'S HOSPITALITY MANAGER "STEVE" [phone], HAS REQUESTED AND UPDATE OF PATIENT'S CONDITION AND PLAN, NOTIFIED DR. WILBURN Addendum: 08/04/19 at 1854 by Serena Carmen RN HEARD BACK FROM DR WILBURN AROUND 5PM SHE STATED THAT SHE CALLED THE NUMBER I GAVE HER BUT COULD NOT GET THROUGH TO THE AUTO MECHANIC AND THAT THE CLINIC WAS CLOSED FOR THE WEEKEND
--- NOTE | 2019-08-04 18:54 | NUR ---
Problems reprioritized. Patient report given, questions answered & plan of care reviewed with MARIEL PERRY.
[2019-08-04 19:00] VITALS: BP 103/53
[2019-08-05] VITALS (9 sets, daily range): BP systolic 102–125; BP diastolic 51–77
[2019-08-05] MEDS: normal saline 1000ml 1,000 ML IV SCH ×3 (03:20→19:27)
[2019-08-05 04:41] LABS: EOSINOPHILS # (AUTO) 0.1 X10'3 (0-0.9); EOSINOPHILS % (AUTO) 2.6 % (0-6); LYMPHOCYTES # (AUTO) 0.3 X10'3 (1.1-4.8); LYMPHOCYTES % (AUTO) 14.6 % (21-51); MEAN CORPUSCULAR HEMOGLOBIN 33.4 PG (27.0-31.0); MEAN CORPUSCULAR HGB CONC 35.3 g/dL (33.0-36.5); MEAN CORPUSCULAR VOLUME 94.7 FL (78-98); MEAN PLATELET VOLUME 11.3 FL (7.4-10.4); MONOCYTES # (AUTO) 0.3 X10'3 (0-0.9); NEUTROPHILS # (AUTO) 1.7 X10'3 (1.8-7.7); NEUTROPHILS % (AUTO) 70.8 % (42-75); RED BLOOD COUNT 1.96 X10'6 (4.70-6.10); RED CELL DISTRIBUTION WIDTH 20.6 % (11.5-14.5); WHITE BLOOD COUNT 2.4 X10'3 (4.5-11.0)
[2019-08-05 04:47] LABS: ALANINE AMINOTRANSFERASE 22 U/L (12-78); ALBUMIN 2.8 G/DL (3.4-5.0); ALKALINE PHOSPHATASE 85 IU/L (46-116); ANION GAP 12 (8-16); ASPARTATE AMINO TRANSFERASE 35 U/L (10-37); BILIRUBIN,TOTAL 3.9 MG/DL (0.1-1.0); BLOOD UREA NITROGEN 51 MG/DL (7-18); BUN/CREATININE RATIO 13.3 (5.4-32.0); CALCIUM 8.3 MG/DL (8.5-10.1); CHLORIDE 104 MMOL/L (99-107); CREATININE 3.83 MG/DL (0.60-1.10); GLUCOSE 114 MG/DL (70-104); POTASSIUM 3.6 MMOL/L (3.5-5.1); SODIUM 133 MMOL/L (135-145); TOTAL CARBON DIOXIDE 17.4 MMOL/L (24-32); eGFR 16 ML/MIN
[2019-08-05 04:48] LABS: HEMOGLOBIN 6.6 g/dl (14.0-17.9); TOTAL PROTEIN 5.7 G/DL (6.4-8.2)
[2019-08-05 04:49] LABS: HEMATOCRIT 18.6 % (42.0-52.0); PLATELET COUNT 25 X10'3 (140-440)
--- NOTE | 2019-08-05 06:10 | NUR ---
Problems reprioritized. Patient report given, questions answered & plan of care reviewed with Serena Hurt. Addendum: 08/05/19 at 0610 by Shaista Steward RN Amended: Links added.
--- NOTE | 2019-08-05 06:35 | NUR ---
Patient in room [facility]CE[facility] 345. I have received report from MARIEL PERRY and had the opportunity to ask questions and assume patient care.
[2019-08-05 06:40] LABS: ANISOCYTOSIS 3+; PLATELET ESTIMATE DECREASED; TOTAL CELLS COUNTED 100
[2019-08-05 06:42] LABS: ACANTHOCYTES 2+; HYPOCHROMASIA 1+; POLYCHROMASIA FEW; SCHISTOCYTES FEW
[2019-08-05] MEDS: lactulose 20gm/30ml cup PO SCH ×3 (07:33→21:09)
[2019-08-05] MEDS: spironolactone 25 MG tablet PO SCH (07:34)
[2019-08-05] MEDS: midodrine tablet 2.5 MG TABLET PO SCH ×2 (07:36→21:10)
[2019-08-05] MEDS: ROPINIRole 0.25mg tablet PO SCH ×3 (07:37→21:09)
[2019-08-05] MEDS: pantoprazole 40mg Tablet.DR PO SCH (07:37)
[2019-08-05] MEDS: multivitamins, therapeutics tablet PO SCH (07:38)
[2019-08-05] MEDS: vitamin E 400 unit capsule PO SCH (07:39)
[2019-08-05] MEDS: zinc sulfate 220mg capsule PO SCH (07:39)
[2019-08-05] MEDS: rifaximin 550mg tablet PO SCH ×2 (07:39→21:32)
--- NOTE | 2019-08-05 07:52 | NUR ---
PAGED DR ROBISON ABOUT PATIENTS LOW H&H, AWAITING CALL BACK: PAGER ID: [phone] MESSAGE: Breana FRITZ RM 345A: PATIENT'S H&H IS 6.6 & 18.6, HAS BLOOD ORDERED BUT DOES NOT HAVE A CONSENT YET
[2019-08-05] MEDS: albumin (human) 25% 100 ML IV solution IV SCH ×2 (08:00→19:29)
--- NOTE | 2019-08-05 14:30 | NUR ---
PAGER ID: [phone] MESSAGE: Breana FRITZ 345A: PATIENT'S BLOOD INFUSION IS DONE DID YOU WANT TO RECHECK HIS H&H IN 2 HOURS? HAD A QUESTION ABOUT THE ALBUMIN, THANK YOU NEIDA [id number]
--- NOTE | 2019-08-05 17:39 | NUR ---
PAGER ID: [phone] MESSAGE: Breana FRITZ RM 345B: PATIENT HAS A PARACENTESIS SCHEDULED FOR TOMRROW AT 0730 OUTPATIENT, COULD WE GET IT SCHEDULED FOR HERE INPATIENT? THANK YOU NEIDA 9480
--- NOTE | 2019-08-05 18:09 | NUR ---
Problems reprioritized. Patient report given, questions answered & plan of care reviewed with MARIEL ANDERSON AND MARIEL MENDEZ.
--- NOTE | 2019-08-05 18:51 | NUR ---
Patient in room [facility] 345. I have received report from Carmela FLOYD and had the opportunity to ask questions and assume patient care.
[2019-08-05] MEDS ORDERED: lactobacillus rhamnosus 10,000 MMU CELLS/CAPSULE PO SCH (20:00)
[2019-08-06 05:32] LABS: BASOPHILS % (AUTO) 0.3 % (0-1); EOSINOPHILS # (AUTO) 0.1 X10'3 (0-0.9); EOSINOPHILS % (AUTO) 1.8 % (0-6); HEMATOCRIT 22.4 % (42.0-52.0); HEMOGLOBIN 7.9 g/dl (14.0-17.9); LYMPHOCYTES # (AUTO) 0.3 X10'3 (1.1-4.8); LYMPHOCYTES % (AUTO) 9.6 % (21-51); MEAN CORPUSCULAR HEMOGLOBIN 33.1 PG (27.0-31.0); MEAN CORPUSCULAR HGB CONC 35.2 g/dL (33.0-36.5); MEAN CORPUSCULAR VOLUME 94.2 FL (78-98); MEAN PLATELET VOLUME 11.7 FL (7.4-10.4); MONOCYTES # (AUTO) 0.3 X10'3 (0-0.9); MONOCYTES % (AUTO) 8.9 % (2-12); NEUTROPHILS # (AUTO) 2.4 X10'3 (1.8-7.7); NEUTROPHILS % (AUTO) 79.4 % (42-75); RED BLOOD COUNT 2.38 X10'6 (4.70-6.10); RED CELL DISTRIBUTION WIDTH 21.9 % (11.5-14.5)
[2019-08-06 05:41] LABS: ALANINE AMINOTRANSFERASE 24 U/L (12-78); ALBUMIN 3.4 G/DL (3.4-5.0); ALKALINE PHOSPHATASE 88 IU/L (46-116); ANION GAP 17 (8-16); ASPARTATE AMINO TRANSFERASE 35 U/L (10-37); BILIRUBIN,TOTAL 5.5 MG/DL (0.1-1.0); BLOOD UREA NITROGEN 44 MG/DL (7-18); BUN/CREATININE RATIO 12.3 (5.4-32.0); CALCIUM 8.7 MG/DL (8.5-10.1); CHLORIDE 102 MMOL/L (99-107); CREATININE 3.58 MG/DL (0.60-1.10); GLUCOSE 135 MG/DL (70-104); POTASSIUM 3.7 MMOL/L (3.5-5.1); SODIUM 134 MMOL/L (135-145); TOTAL CARBON DIOXIDE 15.3 MMOL/L (24-32); eGFR 18 ML/MIN
[2019-08-06 05:49] LABS: PLATELET COUNT 27 X10'3 (140-440)
[2019-08-06 05:56] LABS: ALBUMIN/GLOBULIN RATIO 1.1 (1.1-1.5); TOTAL PROTEIN 6.5 G/DL (6.4-8.2)
--- NOTE | 2019-08-06 06:31 | NUR ---
Problems reprioritized. Patient report given, questions answered & plan of care reviewed with Dianne FLOYD.
--- NOTE | 2019-08-06 06:38 | NUR ---
I have reviewed and agree with all interventions, assessments performed and documented by MARIEL Perez.
--- NOTE | 2019-08-06 06:40 | NUR ---
Patient in room [facility]CE[facility] 345. I have received report from Elvie/Chris FLOYD and had the opportunity to ask questions and assume patient care.
[2019-08-06 07:51] LABS: ANISOCYTOSIS 3+; PLATELET ESTIMATE DECREASED; TOTAL CELLS COUNTED 100
[2019-08-06 07:52] LABS: ACANTHOCYTES 1+; BURR CELLS 2+; HYPOCHROMASIA 1+; LARGE PLATELETS FEW
[2019-08-06 07:53] LABS: SCHISTOCYTES FEW
[2019-08-06 08:00] VITALS: BP 127/65
[2019-08-06] MEDS: rifaximin 550mg tablet PO SCH ×3 (08:00→20:20)
[2019-08-06] MEDS: albumin (human) 25% 100 ML IV solution IV SCH ×2 (08:26→20:30)
[2019-08-06] MEDS: pantoprazole 40mg Tablet.DR PO SCH (08:27)
[2019-08-06] MEDS: zinc sulfate 220mg capsule PO SCH (08:27)
[2019-08-06] MEDS: vitamin E 400 unit capsule PO SCH (08:27)
[2019-08-06] MEDS: multivitamins, therapeutics tablet PO SCH (08:27)
[2019-08-06] MEDS: ROPINIRole 0.25mg tablet PO SCH ×3 (08:27→20:22)
[2019-08-06] MEDS: spironolactone 25 MG tablet PO SCH (08:27)
[2019-08-06] MEDS: lactulose 20gm/30ml cup PO SCH ×4 (08:28→20:18)
[2019-08-06] MEDS: midodrine tablet 2.5 MG TABLET PO SCH ×4 (08:28→20:22)
[2019-08-06] MEDS: normal saline 1000ml 1,000 ML IV SCH ×2 (08:54→18:02)
[2019-08-06 12:20] VITALS: BP 155/62
[2019-08-06] MEDS: octreotide 100mcg/1 ml ampule SQ SCH ×2 (12:30→15:43)
--- NOTE | 2019-08-06 15:34 | NUR ---
Patient refused to let me place hernandez catheter. Patient was encouraged and educated on the need for a hernandez catheter. Patient refused advised primary RN
--- NOTE | 2019-08-06 18:26 | NUR ---
Patient in room [facility]CELLO 358. I have received report from MARIEL Lemons and had the opportunity to ask questions and assume patient care.
--- NOTE | 2019-08-06 18:48 | NUR ---
Problems reprioritized. Patient report given, questions answered & plan of care reviewed with Mahin FLOYD.
--- NOTE | 2019-08-06 19:31 | NUR ---
patient is unable to eat at this time. Addendum: 08/06/19 at 1931 by Mahin Rivera RN Amended: Links added.
[2019-08-06 20:00] VITALS: BP 122/63
--- NOTE | 2019-08-06 21:15 | NUR ---
Gave report kaelyn Lewis. Patient will be transferred by [facility] ambulance. Patient is going to room 6114 when he arrives to hospital. Still awaiting transport company.
[2019-08-06 22:39] VITALS: BP 130/73
--- NOTE | 2019-08-06 22:58 | NUR ---
[facility] picked patient up
== END 2019-08-06 23:00 | disposition short-term general hospital (02) | DRG 279 ==
LOC: ER 15:57 → ED HOLD 20:26 → SUR 3N 21:00
PROVIDERS: ADMIT Internal Medicine; ATTEND Internal Medicine
PROC: 30233N1 Transfusion of Nonautologous Red Blood Cells into Peripheral Vein, Percutaneous Approach (ICD-10-PCS; principal; 2019-08-05)
DX: K76.7 Hepatorenal syndrome (principal); N17.9 Acute kidney failure, unspecified; D61.818 Other pancytopenia; K72.90 Hepatic failure, unspecified without coma; D69.6 Thrombocytopenia, unspecified; D63.8 Anemia in other chronic diseases classified elsewhere; N18.9 Chronic kidney disease, unspecified; Z76.82 Awaiting organ transplant status; Z85.6 Personal history of leukemia
CPT/HCPCS: 36415; 36430; 80053; 82140; 83690; 83880; 84484; 85025; 85610; 86885; 86900; 86901; 86920; 87081; 93005; 99285; G0378; J2354; J7030; P9016; P9047

== ENCOUNTER 2020-07-02 06:29 | Day surgery (SDC) | payer MEDICAID, OTHER ==
[~2020-07-02] VITALS: Ht 177.8 cm; Wt 129.8 kg
[2020-07-02] VITALS (9 sets, daily range): BP systolic 145–183; BP diastolic 83–98
[~2020-07-02 06:29] MED LIST changes: -CHOL10008 PO; +CHOL400T14 PO; +FISH12002 PO; -OMEG-169 PO; -PANT40TA4 PO; +PANT40TA54 PO; -ROPI0.5T2 PO; +ROPI0.5T4 PO; +VITA1CAP; +VITE1000C PO
[2020-07-02] MEDS ORDERED: MYCO250C46 PO (07:15)
[2020-07-02] MEDS ORDERED: GLIP5TAB13 PO (07:15)
[2020-07-02] MEDS ORDERED: SERT25TA PO (07:15)
[2020-07-02] MEDS ORDERED: FILG300S2 (07:15)
[2020-07-02] MEDS ORDERED: LABE100T5 PO (07:15)
[2020-07-02] MEDS ORDERED: DOXA1TAB PO (07:15)
[2020-07-02] MEDS ORDERED: NALT50TA PO (07:15)
[2020-07-02] MEDS ORDERED: MAGN400T39 PO (07:15)
[2020-07-02] MEDS ORDERED: TACR1CAP24 PO (07:15)
[2020-07-02] MEDS ORDERED: TYLENOL (07:15)
[2020-07-02] MEDS ORDERED: ASPI-611 PO (07:15)
[2020-07-02] MEDS ORDERED: midazolam 2 mg/2 ml injection ONE (08:44)
[2020-07-02] MEDS ORDERED: fentaNYL/PF 50MCG/1 ML 2ML syringe ONE (08:45)
[2020-07-02] MEDS ORDERED: gelatin sponge, absorbable (Gelfoam 12-7MM) sponge TP ONE (08:46)
[2020-07-02] MEDS ORDERED: LIDOcaine/PRILOcaine 5gm cream TP ONE (08:51)
[2020-07-02] MEDS ORDERED: normal saline 1000ml 1,000 ML IV SCH (09:15)
[2020-07-02] MEDS ORDERED: HYDROcodone/acetaminophen 5mg/325mg tablet PO PRN (09:15)
--- NOTE | 2020-07-02 09:33 | NUR ---
Brought patient soda he requested. Pt laying on rt side, Drsg CD&I, no s/s of bleeding. VS stable as charted.
--- NOTE | 2020-07-02 09:57 | NUR ---
Pt site stable, drsg with small amount of drainage. Pt denies pain, denies sob. Pt vs stable as charted.
== END 2020-07-02 13:20 | disposition home or self-care (01) ==
LOC: SSTAY O 06:29
PROVIDERS: ATTEND Radiology Vascular & Interventional Radiology
DX: R94.5 Abnormal results of liver function studies (principal); K76.0 Fatty (change of) liver, not elsewhere classified; E11.22 Type 2 diabetes mellitus with diabetic chronic kidney disease; N18.9 Chronic kidney disease, unspecified; E66.9 Obesity, unspecified; Z68.41 Body mass index [BMI] 40.0-44.9, adult; Z72.89 Other problems related to lifestyle; Z88.8 Allergy status to other drugs, medicaments and biological substances; Z79.82 Long term (current) use of aspirin; Z79.899 Other long term (current) drug therapy
CPT/HCPCS: 47000; 76942; 99152; 99153; J2250; J3010; J7030

== ENCOUNTER 2020-12-09 05:49 | Day surgery (SDC) | payer MEDICAID ==
[~2020-12-09] VITALS: Ht 177.8 cm; Wt 124.6 kg
[2020-12-09] VITALS (10 sets, daily range): BP systolic 117–182; BP diastolic 64–141
[~2020-12-09 05:49] MED LIST changes: +ASPI-611 PO; -CHOL400T14 PO; -CIPR-259 PO; +DOXA1TAB PO; +FILG300S2; -FISH12002 PO; -FURO-150 PO; +GLIP5TAB13 PO; +LABE100T5 PO; -LACT10SO PO; +MAGN400T39 PO; -MIDO10TA PO; -MULT-1085 PO; +MYCO250C46 PO; +NALT50TA PO; -RIFA550T PO; -ROPI0.5T4 PO; +SERT25TA PO; -SPIR25TA5 PO; +TACR1CAP24 PO; +TYLENOL; -VITA1CAP; -VITE1000C PO; -ZINC220C12 PO
[2020-12-09] MEDS ORDERED: normal saline 1000ml 1,000 ML IV PRN (06:45)
[2020-12-09 07:01] LABS: BASOPHILS % (AUTO) 0.4 % (0-1); EOSINOPHILS % (AUTO) 1.4 % (0-6); HEMOGLOBIN 12.9 g/dl (14.0-17.9); LYMPHOCYTES # (AUTO) 0.5 X10'3 (1.1-4.8); LYMPHOCYTES % (AUTO) 19.2 % (21-51); MEAN CORPUSCULAR HEMOGLOBIN 32.3 PG (27.0-31.0); MEAN CORPUSCULAR HGB CONC 34.1 g/dL (33.0-36.5); MEAN CORPUSCULAR VOLUME 94.6 FL (78-98); MEAN PLATELET VOLUME 8.9 FL (7.4-10.4); MONOCYTES # (AUTO) 0.2 X10'3 (0-0.9); MONOCYTES % (AUTO) 8.3 % (2-12); NEUTROPHILS # (AUTO) 1.8 X10'3 (1.8-7.7); NEUTROPHILS % (AUTO) 70.7 % (42-75); PLATELET COUNT 61 X10'3 (140-440); RED BLOOD COUNT 4.01 X10'6 (4.70-6.10); RED CELL DISTRIBUTION WIDTH 13.5 % (11.5-14.5); WHITE BLOOD COUNT 2.5 X10'3 (4.5-11.0)
[2020-12-09 07:53] LABS: TOTAL CELLS COUNTED 100
[2020-12-09 07:55] LABS: PLATELET ESTIMATE DECREASED
[2020-12-09] MEDS ORDERED: normal saline 1000ml 1,000 ML IV SCH (09:35)
== END 2020-12-09 12:12 | disposition home or self-care (01) ==
LOC: SSTAY O 05:49
PROVIDERS: ATTEND Radiology Diagnostic Radiology
DX: R94.5 Abnormal results of liver function studies (principal); K75.89 Other specified inflammatory liver diseases; K70.30 Alcoholic cirrhosis of liver without ascites; K75.81 Nonalcoholic steatohepatitis (NASH); E11.9 Type 2 diabetes mellitus without complications; E22.2 Syndrome of inappropriate secretion of antidiuretic hormone; Z94.4 Liver transplant status; Z20.822 Contact with and (suspected) exposure to COVID-19; Z88.8 Allergy status to other drugs, medicaments and biological substances; Z79.82 Long term (current) use of aspirin; Z79.84 Long term (current) use of oral hypoglycemic drugs; Z79.899 Other long term (current) drug therapy; Z80.6 Family history of leukemia
CPT/HCPCS: 36415; 47000; 76942; 82948; 85025; 85610; J7030; U0003; 85007

== ENCOUNTER 2023-01-28 08:30 | Day surgery (SDC) | payer MEDICAID ==
[2023-01-28] VITALS (7 sets, daily range): BP systolic 129–165; BP diastolic 73–100
[~2023-01-28] VITALS: Ht 177.8 cm; Wt 110.7 kg
[~2023-01-28 08:30] MED LIST changes: -DOXA1TAB PO; +DOXA1TAB65 PO; -FILG300S2; -LABE100T5 PO; +LABE100T8 PO; -TYLENOL
[2023-01-28] MEDS ORDERED: LANTUS SQ (09:16)
[2023-01-28] MEDS ORDERED: SERT-434 PO (09:16)
[2023-01-28] MEDS ORDERED: AMLO5TAB16 PO (09:16)
[2023-01-28] MEDS ORDERED: EMPA10TA PO (09:16)
[2023-01-28] MEDS ORDERED: LOSA50TA64 PO (09:16)
[2023-01-28] MEDS ORDERED: MYCO250C PO (09:17)
[2023-01-28 09:22] LABS: BASOPHILS % (AUTO) 0.4 % (0-1); EOSINOPHILS % (AUTO) 0.3 % (0-6); HEMATOCRIT 41.8 % (42.0-52.0); HEMOGLOBIN 14.4 g/dl (14.0-17.9); LYMPHOCYTES # (AUTO) 0.8 X10'3 (1.1-4.8); MEAN CORPUSCULAR HEMOGLOBIN 33.6 PG (27.0-31.0); MEAN CORPUSCULAR HGB CONC 34.4 g/dL (33.0-36.5); MEAN CORPUSCULAR VOLUME 97.6 FL (78-98); MEAN PLATELET VOLUME 8.6 FL (7.4-10.4); MONOCYTES # (AUTO) 0.4 X10'3 (0-0.9); MONOCYTES % (AUTO) 7.6 % (2-12); NEUTROPHILS # (AUTO) 4.2 X10'3 (1.8-7.7); NEUTROPHILS % (AUTO) 77.7 % (42-75); PLATELET COUNT 93 X10'3 (140-440); RED BLOOD COUNT 4.28 X10'6 (4.70-6.10); RED CELL DISTRIBUTION WIDTH 13.4 % (11.5-14.5); WHITE BLOOD COUNT 5.4 X10'3 (4.5-11.0)
[2023-01-28] MEDS ORDERED: LIDOcaine 1%/PF 5ML 10 MG/ML VIAL SQ ONE (10:55)
[2023-01-28] MEDS ORDERED: normal saline 1000ml 1,000 ML IV SCH (11:10)
== END 2023-01-28 12:45 | disposition home or self-care (01) ==
LOC: SSTAY O 08:30
PROVIDERS: ATTEND Radiology Vascular & Interventional Radiology
DX: T86.49 Other complications of liver transplant (principal); R74.01 Elevation of levels of liver transaminase levels; E11.9 Type 2 diabetes mellitus without complications; F10.91 Alcohol use, unspecified, in remission; E87.1 Hypo-osmolality and hyponatremia; E22.2 Syndrome of inappropriate secretion of antidiuretic hormone; K76.7 Hepatorenal syndrome; K75.81 Nonalcoholic steatohepatitis (NASH); Z94.0 Kidney transplant status; Z88.8 Allergy status to other drugs, medicaments and biological substances; Z79.82 Long term (current) use of aspirin; Z79.899 Other long term (current) drug therapy; Z79.84 Long term (current) use of oral hypoglycemic drugs; Z80.6 Family history of leukemia; Y83.0 Surgical operation with transplant of whole organ as the cause of abnormal reaction of the patient, or of later complication, without mention of misadventure at the time of the procedure
CPT/HCPCS: 47000; 76942; 82948; 85025; 85610; J7030